=== PATIENT | female | born 1955 | race Caucasian/White ===

== ENCOUNTER 2022-06-28 05:03 | Observation (INO) ==
--- NOTE | 2022-06-13 13:05 | PAT Medication Instructions ---
Medication Instructions Date of Service June 13, 2022 Home Medications alprazolam 0.25 mg tablet (Xanax) 0.25 mg PO HS PRN Anxiety omeprazole 20 mg tablet,delayed release 20 mg PO DAILY PRN REFLUX sertraline 50 mg tablet 50 mg PO QAM Take morning of surgery With a small sip of water, OTHERWISE NOTHING TO EAT OR DRINK AFTER MIDNIGHT: omeprazole 20 mg tablet,delayed release 20 mg PO DAILY PRN REFLUX (if needed) sertraline 50 mg tablet 50 mg PO QAM Take evening before surgery alprazolam 0.25 mg tablet (Xanax) 0.25 mg PO HS PRN Anxiety (if needed) omeprazole 20 mg tablet,delayed release 20 mg PO DAILY PRN REFLUX (if needed) Other Notes If you have any questions please call us at [phone] or [phone] or [phone] or [phone]
--- NOTE | 2022-06-15 12:28 | Anesthesiology Consultation ---
Date of Service June 15, 2022 Assessment & Plan (1) Encounter for pre-operative examination: - anesthesia complication: pt states was advised should not undergo spinal block in future due to "blockage in spine" per anesthesiologist when spinal block was attempted with a . Pt states was told block was unsuccessful and anesthesia was converted to general. She expresses did have unpleasant experience with a previous intubation as woke during extubation. She states plans to discuss with anesthesiologist DOS. - difficult IV stick. Outpatient joint assessment: Patient is currently scheduled for inpatient pathway. Pt states prefers to remain overnight, if pathway is requested by patient and surgeon's office in future this will be further reviewed. Chart Review Chart Review: Acceptable Risk for Surgery and Patient seen in Pre Admission Testing Teaching & Discussion Pre-Anesthesia Teaching/Discussion Notes: Instructed NPO after midnight before surgery, except medications with 15 cc of water. Medication instructions provided according to the PAT guidelines. History Surgery Operation Date: 06/28/22 09:00 Proposed Procedures p Left Total Knee Arthroplasty - Dominick Licea MD Height/Weight Height: 5 ft 10 in Weight: 79.379 kg Allergies Allergy/AdvReac Type Severity Reaction Status Date / Time morphine Allergy Intermediate ARM Verified 06/13/22 09:09 SWELLING codeine AdvReac Mild NAUSEA Verified 06/13/22 09:09 Medications Home Medications Medication Instructions Recorded Confirmed Last Taken alprazolam 0.25 mg tablet (Xanax) 0.25 mg PO HS PRN Anxiety 03/06/19 06/13/22 Unknown omeprazole 20 mg tablet,delayed 20 mg PO DAILY PRN REFLUX 03/06/19 06/13/22 03/10/19 04:45 release sertraline 50 mg tablet 50 mg PO QAM 06/13/22 06/13/22 Unknown Past Medical History Medical History (Updated 06/15/22 @ 12:35 by Chanel Rehman PA-C) Anxiety GERD (gastroesophageal reflux disease) controlled, stable per pt History of kidney stones Irritable bowel syndrome Migraine Poor venous access PER PATIENT DIFFICULT IV STICK Patient denies h/o stroke, seizures, heart attack, heart failure, DM, HTN, blood clots or blood transfusions. Exercise / Class Metabolic Activity II 4-5 Yardwork/Stairs/Walk up hill (denies CP or SOB with 1 FOS) Past Family History Family History Other No family history of adverse response to anesthesia No significant family history Past Surgical History Surgical History (Updated 06/15/22 @ 12:36 by Chanel Rehman PA-C) History of anesthesia reaction WAS TOLD NOT TO HAVE A SPINAL (WAS TOLD BLOCK DID NOT WORK WITH d/t "small blockage in spine") History of arthroscopy LEFT/RT KNEE Right knee arthroscopy 03/11/19= Done under [facility] with LMA #4, atraumatic History of section X 2 History of colonoscopy History of discectomy LUMBAR AREA History of ear surgery LEFT EAR-GRAFT ON EAR DRUM History of esophagogastroduodenoscopy (EGD) History of hysterectomy History of lithotripsy History of tooth extraction Nausea and vomiting after administration of anesthetic agent Past Anesthesia History No Family Hx of Anesthesia Complications and Other (see anesthesia reaction above regarding spinal) History of PONV No Hx of Motion Sickness and History of PONV (denies needing scop patch) Social History Smoking Status: Never smoker Do You Dip or Chew Tobacco: No Hx Alcohol Use: Yes Alcohol type: wine alcohol intake frequency: a few times a week substance use type: does not use Review of Systems Snoring, denies witnessed apneas. Patient denies chest pain, shortness of breath, dyspnea on exertion, fever, chills, cough, wheezing, or palpitations. Physical Exam Vital Signs Vitals BP 136/85 P 64 TEMP 98.2 SP02 97% on RA RESP 18 Physical Full cervical extension range of motion without pain TMD 3.5 finger breadths Mallampati Score 3 Dentition: intact, removable partial lower and full upper implants; denies chipped or loose teeth Lungs: normal respiratory effort. Clear throughout to auscultation, no adventitious breath sounds Cardiac: regular rate and rhythm, no murmurs noted Carotid arteries: negative bruit bilat Lab Results Anesthesia Preop Results Results Anesthesia Widget: WBC 8.24 K/ul (4.8-10.8) 06/15/22 Hgb 11.8 g/dl (12.0-16.0) L 06/15/22 Hct 35.9 % (34.1-44.9) 06/15/22 Plt 236 K/uL (130-400) 06/15/22 Na 140 mmol/L (136-145) 06/15/22 K 4.6 mmol/L (3.5-5.1) 06/15/22 Cl 105 mmol/L (98-107) 06/15/22 CO2 30 mmol/L (21-32) 06/15/22 BUN 17 mg/dl (6-23) 06/15/22 Creat 0.68 mg/dl (0.6-1.2) 06/15/22 Glucose Level 87 mg/dl (70-99(Fasting)) 06/15/22 PT 10.6 Seconds (9.0-12.0) 06/15/22 PTT 24.4 Seconds (21.0-31.0) 06/15/22 INR 1.0 (0.9-1.1) 06/15/22 Urine Color Yellow 06/15/22 Urine Appearance Clear (Clear) 06/15/22 Urine pH 6.0 (4.5-7.5) 06/15/22 Urine Specific [place] 1.007 (1.000-1.030) 06/15/22 Urine Protein Negative (Negative) 06/15/22 Urine Glucose (UA) Negative (Negative) 06/15/22 Urine Ketones Negative (Negative) 06/15/22 Urine Blood 2+ (Negative) H 06/15/22 Urine Nitrite Negative (Negative) 06/15/22 Urine Bilirubin Negative (Negative) 06/15/22 Urine Urobilinogen Negative (Negative) 06/15/22 Urine Leukocyte Esterase Negative (Negative) 06/15/22 Urine WBC (Auto) 1-5 /hpf (0-5) 06/15/22 Urine RBC (Auto) 5-10 /hpf (0-4) H 06/15/22 Urine Hyaline Casts (Auto) 0 /lpf (0-5) 06/15/22 Urine Epithelial Cells (Auto) 10-20 /lpf (0-5) H 06/15/22 Urine Bacteria (Auto) Negative (Negative) 06/15/22 Blood Type B Positive 06/15/22 Antibody Screen NEGATIVE 06/15/22 Testing Electrocardiogram Date: 06/15/22 NSR, rate 65 bpm Chest X-Ray Date: 06/15/22 No lines and tubes are seen. Calcified aortic knob is seen. The lungs are clear. No evidence of pleural effusion or pneumothorax. Degenerative changes are seen in the thoracic spine. IMPRESSION: No acute chest disease. COVID-19 Risk Screen Screening Information COVID-19 Screen Date: 06/15/22 Exposure 21 Days Family/Household +COVID Last 21 Days: No Exposure 10 Days Any COVID Exposure Last 10 Days: No Symptoms Last 10 Days Experienced COVID Sx Last 10 Days: No + COVID 0-90 Days COVID + in Last 0-90 Days: No
--- NOTE | 2022-06-28 05:22 | History & Physical Bridge Note ---
Date of Service June 28, 2022 History & Physical Bridge Note I have examined the patient, reviewed the History & Physical and in the interval since the performance of the History & Physical I have noted the following changes of clinical significance: no changes noted
[2022-06-28] MEDS ORDERED: ceFAZolin 2000MG 2,000 MG/15 ML SYR IV SCH (06:00)
[2022-06-28] MEDS ORDERED: LR 60ML/HR IV SCH (06:00)
[2022-06-28] MEDS ORDERED: LR 15ML/HR IV SCH (06:00)
[2022-06-28] MEDS ORDERED: TRANEXAMIC ACID 1,000 MG **IV Pre-op IV SCH (06:00)
[2022-06-28] MEDS ORDERED: ROPIVACAINE 0.5% HCL/PF 150 MG, BUPIVACAINE 0.75% MPF 20 ML, EPINEPHrine 0.15 MG, Ketor... INFIL SCH (06:00)
[2022-06-28] MEDS ORDERED: LIDOCAINE 2% MPF LOCAL 5 ML VIAL INFIL ONE (06:12)
[2022-06-28] MEDS ORDERED: fentaNYL citrate 100 MCG/2 ML VIAL ONE (06:12)
[2022-06-28] MEDS ORDERED: PROPOFOL IV EMULSION 10 MG/ML 20 ML VIAL IV ONE ×3 (06:12→07:25)
[2022-06-28] MEDS ORDERED: MIDAZOLAM HCL 1 MG/ML 2ML VIAL ONE ×2 (06:13→07:03)
[2022-06-28] MEDS ORDERED: ONDANSETRON INJ 2 MG/ML 2 ML VIAL ONE (06:16)
[2022-06-28] MEDS ORDERED: DEXAMETHASONE SOD INJ 4 MG/ML VIAL ONE (06:16)
[2022-06-28] MEDS ORDERED: METOCLOPRAMIDE HCL INJ 5 MG/ML 2 ML VIAL ONE (06:16)
[2022-06-28] MEDS ORDERED: SCOPOLAMINE 1 MG TDSY TD ONE (06:18)
[2022-06-28] MEDS ORDERED: FAMOTIDINE/PF 20 MG/2 ML VIAL IV ONE (06:19)
[2022-06-28] MEDS ORDERED: BUPIVACAINE 0.25% 30 ML VIAL ONE (06:31)
[2022-06-28] MEDS ORDERED: BUPIVACAINE 0.5 % 5 MG/1 ML PF 10ML VIAL ONE (06:31)
[2022-06-28] MEDS ORDERED: ORTHO JOINT ANESTHETIC ONE (06:37)
[2022-06-28] MEDS ORDERED: ePHEDrine sulfate 50 MG/ML AMP IV PRN (06:55)
[2022-06-28] MEDS ORDERED: ATROPINE SULFATE 0.1 MG/ML 10ML SYR IV PRN (06:55)
[2022-06-28] MEDS ORDERED: ONDANSETRON INJ 2 MG/ML 2 ML VIAL IV PRN ×2 (06:55→09:54)
[2022-06-28] MEDS ORDERED: fentaNYL citrate 100 MCG/2 ML VIAL IV PRN (06:55)
[2022-06-28] MEDS ORDERED: PHENYLEPHRINE HCL 10 MG/ML VIAL ONE (07:44)
--- NOTE | 2022-06-28 08:30 | Post Operative Brief Note ---
Immediate Post Op Note v1 Date of Surgery June 28, 2022 Pre & Post Diagnosis Operation Date: 06/28/22 07:00 Pre-Op Diagnosis: Left Knee Degenerative Joint Disease Post-Op Diagnosis: Left Knee Degenerative Joint Disease I identified the patient and participated in the time-out.: Yes Procedure Operation Date: 06/28/22 07:00 Actual Procedures p Left Total Knee Arthroplasty, Cemented(Left) - Dominick Licea MD Surgeon Dominick Licea MD Dispatcher [facility] Estimated Blood Loss 25 Findings Consistent with Post-Op Diagnosis
--- NOTE | 2022-06-28 08:39 | Operative Report ---
Post Operative Report Pre & Post Diagnosis Operation Date: 06/28/22 07:00 Pre-Op Diagnosis: Left Knee Degenerative Joint Disease Post-Op Diagnosis: Left Knee Degenerative Joint Disease I identified the patient and participated in the time-out.: Yes Procedure Operation Date: 06/28/22 07:00 Actual Procedures p Left Total Knee Arthroplasty, Cemented(Left) - Dominick Licea MD Surgeon CHANDA Licea MD Bulb Packer Susi POLANCO Estimated Blood Loss 25 Findings Consistent with Post-Op Diagnosis see operative report Specimens see operative report Drains none Complications none Disposition Accompanied Patient To Recovery: Yes Indications This 66 year old female presented to the office with complaints of persisting left knee pain. She had tried conservative care measures without improvement. She elected to proceed with surgical intervention after being educated about potential risks and outcomes. Preoperative imaging was obtained. Description of Procedure Patient was administered a spinal anesthetic and then taken to the operating room where she was given sedation. She was prepped and draped in the usual sterile fashion. Please see Dr. Licea's operative report for specifics of the procedure. I was present for the entire case from initial patient positioning through final wound closure. Assistance was provided in tissue retraction, hemostasis, trial implant placement, final implant placement, and final wound closure. Patient was taken to the recovery room in satisfactory condition. I attest to the content of the Intraoperative Record and any orders documented therein. Any exceptions are noted below.
--- NOTE | 2022-06-28 08:48 | Operative Report (OR) ---
DATE OF PROCEDURE: 06/28/2022. SURGEON: Dominick Licea MD. CASING COOKER: Get Goldman PA-C. No resident or fellow available. PREOPERATIVE DIAGNOSIS: Osteoarthritis with varus deformity, left knee. POSTOPERATIVE DIAGNOSIS: Osteoarthritis with varus deformity, left knee. OPERATION PERFORMED: Left cemented total knee replacement. SUMMARY OF IMPLANTS: Sigma femoral implants: Size 3 left femur posterior cruciate substituting, siz e 3 mobile bearing tray, size 3 x 12.5 insert, oval dome 3-peg patella, size 38, two bags of Palacos G cement. ESTIMATED BLOOD LOSS: 25 mL CRYSTALLOID: Per anesthesia. BONE PATHOLOGY: Pending. DVT PROPHYLAXIS: Per protocol. PERIOPERATIVE SITUATION: Medically cleared female with intractable knee pain, wished to proceed with surgical treatment. She has failed conservative management for years. DESCRIPTION OF PROCEDURE: The patient was appropriately identified, site verified, consent verified. Antibiotics were confirmed as being given. The left lower extremity was prepped and draped in the usual routine fashion. Tourniquet was inflated to 275 mmHg for a total of roughly 45 minutes. Midli ne exposure was utilized. Parapatellar arthrotomy performed. Synovectomy completed, osteophytes res ected. Distal femur entered. Cruciates resected. Distal femur resected. Tibia subluxated with men iscal remnants excised. There was grade IV disease of the entire medial compartment. There was sign ificant disease of the patellofemoral compartment. Once the distal femur was cut and the tibia sublu xated, the proximal tibia cut, the extension gap was excellent. The femur was sized between a 4 and a 3, was measured 4, cut 3. There was no notching. The flexion gap was checked, it was excellent. The posterior capsule was then injected with Orthomix. The box cut was then made, the size 3 fit wel l. The tibia was then broached and reamed to a size 3 and a size 12.5 spacer gave a little bit stephen r mid range stability without losing extension, so we kept that. The patella was then resected leavi ng 14 mm and a 38 button fit well. It tracked well. Did require some internal releasing. The Orthomix was then injected all about the knee. The implants were removed. The wound was irrigat ed and soaked in Betadine for 2 minutes, then irrigated again and then the implants cemented in posit ion -- tibia, femur, and patella in that order. At 12 minutes, the tourniquet deflated. At 14 minute s, the knee inspected. There was no cement removal required. There was no major bleeding. Bone wax was used on some raw surfaces of bone to prevent any leakage. The wound was then irrigated one shivam l time with Betadine and Pulsavac, the permanent liner seated. The knee then reduced and closed with #2 Vicryl, 2-0 Vicryl and stainless steel clips. Appropriate dressing applied. The patient was tra nsferred to recovery room in satisfactory condition, having tolerated the procedure well. Job ID: [id number]
--- NOTE | 2022-06-28 08:54 | Progress Notes ---
DATE OF SERVICE: 06/28/2022 SUBJECTIVE: Postop check status post left total knee replacement. The patient is resting comfortably in PACU. She denies any chest pain, shortness of breath, fever, chills, nausea, vomiting or headache. VITAL SIGNS: Stable. She is afebrile. Wound dressing clean, dry and intact. Neurovascular check limited by spinal. X-rays postoperative look good. ASSESSMENT: Doing well. Continue care pathway. Mobilize BEATRIZ when spinal effects worn off. Discharge home tomorrow. Job ID[facility] [id number] [facility]
--- NOTE | 2022-06-28 09:04 | Discharge Summary (DS) ---
DATE OF ADMISSION: 06/28/2022. DATE OF DISCHARGE: 06/29/2022. CHIEF COMPLAINT: Left knee pain. HISTORY OF PRESENT ILLNESS: Admitted for elective left total knee replacement. To date hospital cou rse has been uneventful. She is having a total knee replacement. Postop x-rays look excellent. REVIEW OF SYSTEMS: Reveals no chest pain, shortness of breath, fever, chills, nausea, vomiting or he adache. PAST MEDICAL HISTORY: Remarkable for acid reflux, migraines, rheumatoid arthritis, kidney stones, na usea and vomiting with anesthesia. PAST SURGICAL HISTORY: Include knee surgery, , laser eye surgery. PREADMISSION MEDICATIONS: Include lorazepam, atorvastatin, Celebrex p.r.n., ketorolac for migraines. ALLERGIES: MORPHINE SWELLING UPPER EXTREMITY. CODEINE, NAUSEA, VOMITING. SOCIAL HISTORY: Reveals no tobacco or alcohol use. FAMILY HISTORY: Noncontributory. Postop x-rays look excellent. ASSESSMENT: Doing well status post left total knee replacement. Continue with postoperative care phil pacheco. Job ID: [id number]
[2022-06-28] MEDS ORDERED: HYDROmorphone INJ 0.5 MG/0.5 ML SYR IV PRN (09:54)
[2022-06-28] MEDS ORDERED: NALOXONE HCL 0.4 MG/1 ML VIAL/CARP IV PRN (09:54)
[2022-06-28] MEDS ORDERED: METOCLOPRAMIDE HCL INJ 5 MG/ML 2 ML VIAL IV PRN (09:54)
[2022-06-28] MEDS ORDERED: ALPRAZolam 0.25 MG TABLET PO PRN (09:54)
[2022-06-28] MEDS ORDERED: bisacodyL 10 MG SUPP PR PRN (09:54)
[2022-06-28] MEDS ORDERED: ALUMINUM/MAGNESIUM SUSP 30 ML UDC PO PRN (09:54)
[2022-06-28] MEDS ORDERED: MAGNESIUM HYDROXIDE SUSP 30 ML UDC PO PRN (09:54)
[2022-06-28] MEDS ORDERED: SODIUM CHLORIDE 0.9% 1000ML 1,000 ML IV SCH (09:54)
[2022-06-28] MEDS ORDERED: diphenhydrAMINE 50 MG/ML VIAL IV PRN (09:54)
[2022-06-28] MEDS: DOCUSATE SODIUM 100 MG CAP PO SCH ×2 (11:17→21:49)
[2022-06-28] MEDS: KETOROLAC TROMETHAMINE 15 MG/ML VIAL IV SCH ×3 (11:17→21:49)
[2022-06-28] MEDS: SERTRALINE HCL 50 MG TABLET PO SCH (11:18)
[2022-06-28] MEDS: MULTIVITAMIN TAB PO SCH (11:18)
--- NOTE | 2022-06-28 11:30 | Progress Notes ---
DATE OF SERVICE: 06/28/2022 SUBJECTIVE: Postop check status post left knee replacement. The patient is sitting up in bed, is dr inking water with no issues. Denies chest pain, shortness of breath, fever, chills, nausea, vomiting or headache. OBJECTIVE: Neurovascular check of femoral sciatic nerve is returning from spinal. Wound dressing cl seth, dry and intact. Calf is nontender. ASSESSMENT: Doing well. Continue with postoperative care pathway. Mobilize in a knee immobilizer a nd discontinue IV fluid when she has lunch. Job ID: [id number]
[2022-06-28] MEDS: ORTHO WARFARIN NOMOGRAM SCH (12:59)
--- NOTE | 2022-06-28 13:51 | XRay Report ---
XR knee LT 1 or 2V routine CLINICAL HISTORY: S/P L TKA COMPARISON: Left knee radiographs June 05, 2022. FINDINGS: Alignment of the total left knee arthroplasty is anatomic. There is no periprosthetic frac ture or unexpected radiopaque foreign body. There are skin ramya. IMPRESSION: Expected findings following total left knee arthroplasty. ACT 112: Negative or not required by law. Electronically signed by: Leandro Diaz M.D. 06/28/2022 1:50 PM
[2022-06-28] MEDS: ACETAMINOPHEN 500 MG TAB PO SCH ×2 (14:30→21:48)
[2022-06-28] MEDS: oxyCODONE HCL IR 5 MG TAB (IMMEDIATE RELEASE) PO PRN ×2 (14:36→19:28)
[2022-06-28] MEDS ORDERED: TRANEXAMIC ACID / 0.7% NACL 1,000 MG/100 ML BAG IV SCH (14:45)
--- NOTE | 2022-06-28 14:53 | Anesthesiology Progress Note ---
Date of Service June 28, 2022 Anesthesia Post Procedure Vital Signs Vital Signs: Temp Pulse Pulse Resp BP Pulse Ox O2 Del Method 06/28/22 12:55 36.5 C 81 16 97/61 L 100 Room Air 06/28/22 11:55 36.6 C 77 16 109/68 97 Room Air 06/28/22 10:55 36.5 C 69 16 113/74 96 Room Air 06/28/22 10:34 36.6 C 57 L 16 115/75 99 Room Air 06/28/22 09:56 36.6 C 61 16 120/79 100 Room Air 06/28/22 09:35 36.3 C L 69 16 105/57 L 95 Room Air 06/28/22 09:25 36.3 C L 64 16 110/63 97 Room Air 06/28/22 09:15 69 13 105/61 93 Room Air 06/28/22 09:05 65 17 105/65 95 Room Air 06/28/22 08:55 74 18 110/60 97 Oxymask 06/28/22 08:45 70 18 107/53 L 100 Oxymask 06/28/22 08:37 36.1 C L 73 18 112/64 95 Oxymask 06/28/22 05:28 36.6 C 62 20 100 Room Air O2 Flow Rate 06/28/22 12:55 06/28/22 11:55 06/28/22 10:55 06/28/22 10:34 06/28/22 09:56 06/28/22 09:35 06/28/22 09:25 06/28/22 09:15 06/28/22 09:05 06/28/22 08:55 5 06/28/22 08:45 5 06/28/22 08:37 5 06/28/22 05:28 Transfer of Care Handoff Completed per policy Notes Mental Status: alert / awake / arousable and participated in evaluation Patient Amnestic to Procedure: Yes Nausea / Vomiting: adequately controlled Pain: adequately controlled Airway Patency, RR, SpO2: stable & adequate BP & HR: stable & adequate Hydration State: stable & adequate Neuraxial Anesthesia: was administered and sensory block is resolving Anesthetic Complications: no major complications apparent and Pt Satisfied with anesthetic care
[2022-06-28] MEDS: ceFAZolin 2000MG 2,000 MG/15 ML SYR IV SCH ×2 (15:16→21:49)
[2022-06-28] MEDS ORDERED: WARFARIN SOD 5 MG TAB PO SCH (16:00)
[2022-06-28] MEDS: FERROUS GLUCONATE 324 MG TAB PO SCH (17:34)
[2022-06-28] MEDS: ASCORBIC ACID 500 MG TAB PO SCH (17:34)
[2022-06-28] MEDS ORDERED: SENNA 8.6 MG TAB PO SCH (21:00)
[2022-06-29] MEDS: ceFAZolin 2000MG 2,000 MG/15 ML SYR IV SCH (00:11)
[2022-06-29] MEDS: oxyCODONE HCL IR 5 MG TAB (IMMEDIATE RELEASE) PO PRN ×4 (00:11→13:02)
[2022-06-29] MEDS: KETOROLAC TROMETHAMINE 15 MG/ML VIAL IV SCH ×2 (00:11→04:29)
[2022-06-29] MEDS: ACETAMINOPHEN 500 MG TAB PO SCH ×2 (05:28→13:04)
[2022-06-29 06:35] LABS: Hematocrit (blood only) 28.8 % (34.1-44.9); Hemoglobin 9.5 g/dl (12.0-16.0); Mean Corpuscular Hemoglobin 29.5 pg (25.0-34.0); Mean Corpuscular Volume 89.4 fL (80.0-100.0); Mean Platelet Volume 10.6 fL (9.4-12.3); Platelet Count 189 K/uL (130-400); RDW Coefficient of Variation 13.9 % (11.5-14.5); RDW Standard Deviation 45.3 fL (36.4-46.3); Red Blood Count 3.22 M/uL (3.93-5.22)
--- NOTE | 2022-06-29 06:37 | Progress Notes ---
DATE OF SERVICE: 06/28/2022 SUBJECTIVE: Postop check, status post left total knee replacement. The patient is sitting up in bed. She has no issues. She denies any real pain. She denies chest pa in, shortness of breath, fever, chills, nausea, vomiting or headache. OBJECTIVE: VITAL SIGNS: Stable. She is afebrile. NEUROVASCULAR: Neurovascular check, femoral sciatic nerve is normal. She can do a straight leg rueda se. She is ambulating. EXTREMITIES: Calves nontender. SKIN: Wound dressing clean, dry and intact. She is eating, drinking, voiding. LABORATORY DATA: A.m. laboratory work pending. ASSESSMENT: Doing well. Discharged home today after a.m. PT. Coumadin dose per nomogram today. Tere davila pending. Job ID: [id number]
[2022-06-29 06:57] LABS: BUN Creatinine Ratio 21.3 (10-20); Calcium 8.3 mg/dl (8.5-10.1); Creatinine Clr Calc Pharmacy 86.7 ml/min; Est GFR (African American) 96.3 ml/min; Est GFR (Non-African American) 83.1 ml/min; Potassium 3.8 mmol/L (3.5-5.1)
[2022-06-29 07:17] LABS: INR 1.1 (0.9-1.1); Prothrombin Time 11.2 Seconds (9.0-12.0)
[2022-06-29] MEDS: SERTRALINE HCL 50 MG TABLET PO SCH (07:26)
[2022-06-29] MEDS: MULTIVITAMIN TAB PO SCH (07:26)
[2022-06-29] MEDS: ASCORBIC ACID 500 MG TAB PO SCH (07:26)
[2022-06-29] MEDS: FERROUS GLUCONATE 324 MG TAB PO SCH (07:26)
[2022-06-29] MEDS: DOCUSATE SODIUM 100 MG CAP PO SCH (07:27)
[2022-06-29] MEDS ORDERED: dexAMETHasone 10 MG in SYRINGE 0 ML IV SCH (08:00)
--- NOTE | 2022-06-29 09:04 | Orthopedic Progress Note ---
Date of Service June 29, 2022 Assessment & Plan (1) S/P total knee replacement using cement: Plan: Patient's dressings were changed. THOMAS hose were applied. She may be discharged today to home with home health services. Knee immobilizer should be used today and tomorrow and may be discontinued on Sunday morning. Weight-bear as tolerated using her walker. Prescriptions for Percocet and Coumadin were sent to her pharmacy. Follow-up in the office in 2 weeks as scheduled for staple removal. Call with any other concerns. Admission and Anticipated Discharge Date Admission Date: June 28, 2022 Subjective Patient is seen in her room this morning. She states she is doing well. She has minimal pain. She is pleased with her outcome thus far. She has been out of bed. She has finished her breakfast. No other complaints. She denies any chest pain, shortness of breath, nausea, vomiting, abdominal pain, or significant leg pain. Review of Systems Review of Systems: Unchanged from yesterday. Physical Exam Physical Exam: General: Well-developed, well-nourished, elderly white female, in no acute distress. Sitting in bed. Alert and oriented. Skin: Warm and dry with good turgor. No rashes or lesions. Postsurgical dressings are in place on the left leg. Upon removal, ramya are intact. Wound edges are well approximated. Expected ecchymosis. Expected edema. No erythema. No active drainage. There is scant dried blood on her inner dressings. Musculoskeletal: Patient has intact motor function to the knee, ankle, and toes. She is able to set her quad and perform a straight leg raise. She has full terminal extension. Flexion to 45 degrees easily. Neurologic: Gross sensation is intact across the left leg by soft touch. Peripheral pulses are 2+. Results & Data ([facility]) Vital Signs (Past 12 Hours) Vital Signs Temp Pulse Resp BP Pulse Ox O2 Del Method 06/29/22 06:14 36.8 C 64 14 94/61 L 96 Room Air 06/29/22 02:20 37 C 68 14 108/69 96 Room Air 06/29/22 02:19 37 C 64 14 108/69 93 Room Air Laboratory Results CBC obtained this morning shows a white count of 8.2. Hemoglobin 9.5 and hematocrit 28.8. INR is 1.1. PRP is unremarkable. Glucose is 129 today.
[2022-06-29] MEDS: ORTHO WARFARIN NOMOGRAM SCH (09:49)
[2022-06-29] MEDS ORDERED: WARFARIN SOD 5 MG TAB PO ONE (16:00)
== END 2022-06-29 14:23 | disposition home health service (06) ==
LOC: ASU 05:03 → 3E 05:03

== ENCOUNTER 2023-06-20 05:44 | Observation (INO) ==
--- NOTE | 2023-06-13 14:38 | Anesthesiology Consultation ---
Date of Service June 13, 2023 Assessment & Plan (1) Encounter for pre-operative examination: Chart Review Chart Review: Acceptable Risk for Surgery (pending DOS PTT ) and Patient NOT seen in Pre Admission Testing - Check PTT DOS (not done preoperatively) Difficult IV stick Upon review of chart- patient is an acceptable candidate for [facility] from anesthesia perspective. Patient is motivated, has good support; pending surgeon's office completes [facility] preop requirements- patient may proceed with outpatient TKA. (Spoke with patient via phone 06/13/23 to confirm she was motivated, had home support and good functional status) -Infectious Disease screening: Per PAT nursing assessment on 06/13/23. No known infectious disease contacts in past 10 days or current infectious disease symptoms. No recent travel outside the country. Left TKA 06/28/22= Done under SAB at L4-5 with 1 attempt History Surgery Operation Date: 06/20/23 08:50 Proposed Procedures p Right Total Knee Arthroplasty - Dominick Licea MD Height/Weight Height: 5 ft 10 in Weight: 77.111 kg Allergies Allergy/AdvReac Type Severity Reaction Status Date / Time morphine Allergy Intermediate ARM Verified 06/13/23 13:28 SWELLING codeine AdvReac Mild NAUSEA Verified 06/13/23 13:28 Medications Home Medications Medication Instructions Recorded Confirmed Last Taken alprazolam 0.25 mg tablet (Xanax) 0.25 mg PO HS PRN Anxiety 03/06/19 06/13/23 06/26/22 omeprazole 20 mg tablet,delayed 20 mg PO DAILY PRN REFLUX 03/06/19 06/13/23 06/27/22 08:30 release sertraline 50 mg tablet 50 mg PO QAM 06/13/22 06/13/23 06/27/22 08:30 fkowqza-abwfcjptlbzun-gvzxtjrt 250 1 tab PO Q6H PRN Migraine Headache 06/13/23 06/13/23 Unknown mg-250 mg-65 mg tablet (Excedrin Migraine) atorvastatin 20 mg tablet (Lipitor) 20 mg PO HS 06/13/23 06/13/23 Unknown Past Medical History Medical History Dyslipidemia History of kidney stones Poor venous access PER PATIENT DIFFICULT IV STICK GERD (gastroesophageal reflux disease) controlled, stable per pt Irritable bowel syndrome Anxiety Migraine Exercise / Class Metabolic Activity II 4-5 Yardwork/Stairs/Walk up hill (one flight of stairs- no chest pain or SOB ) Past Family History Family History Other No family history of adverse response to anesthesia No significant family history Past Surgical History Surgical History (Updated 06/13/23 @ 14:36 by Gissel Rm PA-C) S/P total knee replacement using cement History of anesthesia reaction - History of issue with spinal anesthesia in the past (WAS TOLD BLOCK DID NOT WORK WITH d/t "small blockage in spine") - Patient had no issues with SAB 06/28/22 (satisfied with SAB per patient) Nausea and vomiting after administration of anesthetic agent History of section X 2 History of hysterectomy History of arthroscopy LEFT/RT KNEE Right knee arthroscopy 03/11/19= Done under [facility] with LMA #4, atraumatic History of discectomy LUMBAR AREA History of lithotripsy History of esophagogastroduodenoscopy (EGD) History of colonoscopy History of tooth extraction History of ear surgery LEFT EAR-GRAFT ON EAR DRUM Social History Smoking Status: Never smoker Do You Dip or Chew Tobacco: No Hx Alcohol Use: Yes Alcohol type: wine alcohol intake frequency: a few times a month Hx Substance Use: No substance use type: does not use Lab Results Anesthesia Preop Results Results Anesthesia Widget: PT 10.9 Seconds (9.0-12.0) 06/11/23 INR 1.0 (0.9-1.1) 06/11/23 Urine Color Yellow 06/11/23 Urine Appearance Clear (Clear) 06/11/23 Urine pH 6.0 (4.5-7.5) 06/11/23 Urine Specific [place] 1.016 (1.000-1.030) 06/11/23 Urine Protein Negative (Negative) 06/11/23 Urine Glucose (UA) Negative (Negative) 06/11/23 Urine Ketones Negative (Negative) 06/11/23 Urine Blood Negative (Negative) 06/11/23 Urine Nitrite Negative (Negative) 06/11/23 Urine Bilirubin Negative (Negative) 06/11/23 Urine Urobilinogen Negative (Negative) 06/11/23 Urine Leukocyte Esterase Trace (Negative) H 06/11/23 Urine WBC (Auto) 1-5 /hpf (0-5) 06/11/23 Urine RBC (Auto) 0-4 /hpf (0-4) 06/11/23 Urine Hyaline Casts (Auto) 0 /lpf (0-5) 06/11/23 Urine Epithelial Cells (Auto) 5-10 /lpf (0-5) H 06/11/23 Urine Bacteria (Auto) Negative (Negative) 06/11/23 Blood Type B Positive 06/11/23 Antibody Screen NEGATIVE 06/11/23 Testing Laboratory Results 06/11/23= URINE CULTURE: 3 types of organisms present, all low counts probable skin larisa 04/26/23= WBC: 4.4 H/H: 11.5/35.8 PLATELETS: 261 SODIUM: 143 POTASSIUM: 4.1 CHLORIDE: 105 CO2: 28 BUN: 18 CREATININE: 0.7 GLUCOSE: 91 Electrocardiogram Date: 06/11/23 NSR at 62bpm Chest X-Ray Date: 06/11/23 Findings: + NAD FINDINGS: PA and lateral chest radiographs are compared to study dated 06/15/2022. The cardiomediastinal silhouette is unremarkable. There are punctate calcified granulomas. The lungs and pleural spaces are otherwise clear. There is no pneumothorax. The skeletal structures are osteopenic. The bony thorax appears intact.
[2023-06-20] MEDS ORDERED: ROPIVACAINE 0.5% HCL/PF 150 MG, BUPIVACAINE 0.75% MPF 20 ML, EPINEPHrine 0.15 MG, Ketor... INFIL SCH (06:00)
[2023-06-20] MEDS ORDERED: TRANEXAMIC ACID 1,000 MG **IV Pre-op IV SCH (06:00)
[2023-06-20] MEDS ORDERED: LR 500ML BOLUS, THEN 15ML/HR IV SCH (06:00)
[2023-06-20] MEDS ORDERED: LR 60ML/HR IV SCH (06:00)
[2023-06-20] MEDS ORDERED: ceFAZolin 2000MG 2,000 MG/15 ML SYR IV SCH (06:00)
[2023-06-20] MEDS ORDERED: EPINEPHrine INJ 1 MG/ML AMP ONE (06:22)
[2023-06-20] MEDS ORDERED: BUPIVACAINE 0.5 % 5 MG/1 ML PF 10ML VIAL ONE (06:22)
[2023-06-20] MEDS ORDERED: ROPIVACAINE 0.5% 5 MG/ML 30 ML VIAL ONE (06:22)
--- NOTE | 2023-06-20 06:26 | History & Physical Bridge Note ---
Date of Service June 20, 2023 History & Physical Bridge Note I have examined the patient, reviewed the History & Physical and in the interval since the performance of the History & Physical I have noted the following changes of clinical significance: no changes noted
[2023-06-20 06:54] LABS: Partial Thromboplastin Ratio 0.8; Partial Thromboplastin Time 23 Seconds (21-31)
[2023-06-20] MEDS ORDERED: MIDAZOLAM HCL 1 MG/ML 2ML VIAL ONE ×2 (07:41→07:42)
[2023-06-20] MEDS ORDERED: fentaNYL citrate PF 100 MCG/2 ML VIAL ONE (07:42)
[2023-06-20] MEDS ORDERED: LIDOCAINE 2% 2 ML VIAL/AMP(20MG/ML) INFIL ONE (07:48)
[2023-06-20] MEDS ORDERED: PROPOFOL IV EMULSION 10 MG/ML 20 ML VIAL IV ONE (07:48)
[2023-06-20] MEDS ORDERED: DEXAMETHASONE SOD INJ 4 MG/ML VIAL ONE (08:53)
[2023-06-20] MEDS ORDERED: ONDANSETRON INJ 2 MG/ML 2 ML VIAL ONE (08:53)
[2023-06-20] MEDS ORDERED: ORTHO JOINT ANESTHETIC ONE (09:12)
[2023-06-20] MEDS ORDERED: ePHEDrine sulfate 50 MG/5 ML SYR ONE (10:05)
[2023-06-20] MEDS ORDERED: TRANEXAMIC ACID / 0.7% NACL 1000MG/100ML BAG IV ONE (10:10)
[2023-06-20] MEDS ORDERED: TRANEXAMIC ACID 100 MG/ML 10 ML VIAL IV ONE ×2 (10:32→10:38)
[2023-06-20] MEDS ORDERED: ATROPINE SULFATE 0.1 MG/ML 10ML SYR IV PRN (10:41)
[2023-06-20] MEDS ORDERED: ePHEDrine sulfate 50 MG/ML AMP IV PRN (10:41)
--- NOTE | 2023-06-20 10:45 | Post Operative Brief Note ---
Immediate Post Op Note v1 Date of Surgery June 20, 2023 Pre & Post Diagnosis Operation Date: 06/20/23 08:50 <No data on this case meets the specified criteria> Osteoarthritis with varus deformity right knee preop diagnosis postop diagnosis same I identified the patient and participated in the time-out.: Yes Procedure Operation Date: 06/20/23 08:50 <No data on this case meets the specified criteria> Cemented right total knee replacement DePuy J&J rotating platform system Surgeon Dominick Licea MD Lead Pony Rider BILL/Susi Estimated Blood Loss 25 Findings Consistent with Post-Op Diagnosis Severe medial compartment disease grade 4 tibia and femur over 50 to 75% of the surface on the femur roughly 40% on the tibia patella completely denuded of cartilage in the 50% central area grade 2-3 changes smaller grade 4 change in the trochlea Fluids See anesthesia report Complications None
[2023-06-20] MEDS ORDERED: TRANEXAMIC ACID / 0.7% NACL 1,000 MG/100 ML BAG IV ONE (10:49)
--- NOTE | 2023-06-20 10:49 | Operative Report ---
Post Operative Report Procedure Date: June 20, 2023 Pre & Post Diagnosis: [Osteoarthritis right knee varus deformity preop diagnosis Postop diagnosis same Time Out: I identified the patient and participated in the time-out. Procedure: [Cemented right total knee replacement] Surgeon: Conchita] Feller Buncher Operator: [BILL/Susi] Estimated Blood Loss: [] 25 cc Findings: [Severe disease medial compartment especially femur and tibia grade 4 50% surface area grade 4 75% patella surface Specimens: Bone pathology [] Description of Procedure: [] After the patient was appropriate notified site verified consent verified antibiotics confirmed to be given the right lower extremity was prepped and draped in routine fashion. Tourniquet was inflated to 275 mmHg for exsanguination limb with a rubber surprise for total of 49 minutes. Midline exposure was utilized. Arthrotomy performed. Synovectomy completed. Osteophytes resected. Distal femur entered. Cruciates resected. Tibia subluxated menisci resected. Care taken to coagulate all vessels around the knee and the geniculate system. Distal femur was then resected 12 mm proximal tibia 4 mm the extension gap was excellent. This femur was sized between a 4 and a 3 was measured for cut 3 there was no notching the flexion gap was excellent. The box cut was then made. A size 3 fit well. The tibia was then subluxated broached and reamed to a size 3 and a 12-1/2 mm spacer gave excellent extension full flexion stability and good midrange flexion stability. The patella tracked well. The patella was resected leaving 14 mm and was only roughly 24 mm wide. The 38 button seating holes were made and tracked well. Ortho mix was then injected all about the knee the wound was then irrigated with Pulsavac Betadine soaked for 2 minutes and then the permanent cemented into position. Tibia femur and patella in that order a 12 minutes the tourniquet was deflated at 14 minutes the knee was exposed spacer removed no cement removal required the knee was irrigated with Pulsavac Betadine the permanent liner seated the knee reduced and then closed at 40 degrees of flexion with #2 Vicryl 2-0 Vicryl and standstill clips appropriate dressing applied the patient recovery in satisfactory addition having tolerated procedure well. Summary of implants size 3 rotating platform femur posterior cruciate substituting size 3 mobile-bearing tray size 3 x 12.5 insert posterior cruciate stabilized in the 38 patella 2 bags of [place] G cement J&J rotating platform system. DVT prophylaxis will be with Eliquis for 4 weeks. EBL was 25 cc or less bone pathology pending crystalloid per anesthesia. Full weightbearing. Attestation: I attest to the content of the Intraoperative Record and any orders documented therein. Any exceptions are noted below.
--- NOTE | 2023-06-20 10:50 | Orthopedic Progress Note ---
Date of Service June 20, 2023 Assessment & Plan (1) S/P total knee replacement using cement: Plan Care management plan; discharge plan tomorrow. Start DVT PE. Prophylaxis tomorrow. Admission and Anticipated Discharge Date Admission Date: Dissipated date of discharge 06/21/2023. Orthopedic Progress Note Tolerated right total knee replacement well denies chest pain shortness of breath fever chills nausea vomiting or headache. Vital signs are stable she is afebrile. Postop x-rays pending. Family contacted. Continue with care pathway. Discharge tomorrow. Pain medication issues have been discussed with her. These include nausea. Will adjust accordingly to [place]. Eliquis for DVT PE prophylaxis for 4 weeks.
--- NOTE | 2023-06-20 10:53 | Discharge Summary ---
Date of Service June 21, 2023 Admission HPI Per Admitting Provider Pain right knee failed conservative management for years. Wishing total knee replacement had it done on the opposite side did well this for the right side. Principal Diagnosis Severe osteoarthritis right knee Discharge Data Allergies Allergy/AdvReac Type Severity Reaction Status Date / Time morphine Allergy Intermediate ARM Verified 06/20/23 06:06 SWELLING oxycodone AdvReac Intermediate Hallucinati Verified 06/20/23 06:19 ng codeine AdvReac Mild NAUSEA Verified 06/20/23 06:06 Vaccinations None Consultations None Procedures Performed Operation Date: 06/20/23 08:50 Actual Procedures p Right Total Knee Arthroplasty(Right) - Dominick Licea MD Ordered Studies 06/20/23 05:00 US - OR guided needle placemen Routine Hospital Course (1) Status post right knee replacement: Home self-care with home services. Case management to see today. Plan Discharge to home tomorrow after PT OT services. Total Time Total Time Spent Total Time Spent (In Minutes): 5 minutes Discharge Plan Discharge Items Patient Disposition: Home - Home Health Services Reason For Visit: Right Knee Degenerative Joint Disease Discharge Diagnosis: Right knee s/p total knee replacement Condition on Discharge: Good Activity: Per Instructions section Lifting: Wait until after follow-up appointment Bathing: Keep incision dry Sexual Activity: Wait until after follow-up appointment Exercise/Sports: Wait until after follow-up appointment Driving/Machine Use: No driving until cleared by Dr. Licea Weightbearing: Full weightbearing Non-emergency contact: Surgeon Call non-emergency contact if: you have any medication questions, your pain is not controlled, your temperature is above 101.5, your wound has increased redness, your wound has increased drainage and your wound pain has increased Follow-up/Referrals: Tevin Schmidt MD [Primary Care Provider] - Diet: Regular Addtl Attending Provider Instructions: New Medicine: * You will likely be taking one or more of these medications: 1. Percocet - Take, as directed, when you need it, every four to six hours to control your pain. 2. Iron Sulfate - Take three times each day for the month after surgery to help you replace the blood lost during surgery. 3. Coumadin - Thins your blood to lessen the chance of forming a blood clot. The dose of this is different for each person and is based on your blood tests that are done twice a week. * The most common side effects of pain medicine and iron are nausea and constipation. If nausea or constipation is too much of a problem or if you have any questions about your new medicines or doses, call [facility] at . We will try to help you manage these issues. "VERY IMPORTANT TO READ AND REVIEW" Blood Clots and Blood Thinning Medicine: * You are given Coumadin during the immediate post-operative period to lessen the risk of blood clots forming in your legs and/or lungs. Coumadin is usually given for six weeks after surgery. * The prescription is for 2 mg tablets. At discharge, you should understand your dose and take it all at the same time every day, preferably after dinner. * You need to get your blood checked 1 - 2 times per week for six weeks or as directed. * If your dose needs to change, we will call you. Do not take your medication on the day of the blood test until we call you. Pain: * The immediate post-operative period after knee replacement surgery is often quite painful. * You are given a prescription for pain medicine. You should take it, as directed, when you need it, especially before physical therapy and before going to bed. Pain that interferes with sleep is very common and can last several months. * You will likely need pain medicine for the first four to six weeks. It will not stop all of the pain. The pain will lessen and as you feel better, you may change to milder pain medicine such as Tylenol. * The most common side effects of pain medicine are nausea and constipation, so don't take more than you need. Physical Therapy: * You will have physical therapy two or three times each week for four to six weeks after your surgery in order to regain your knee range of motion and to retrain your knee to work properly. * It is just as important to make sure you are getting your knee perfectly straight as it is to regain your knee bend. * Taking a pain pill an hour before therapy can help you have a more productive and comfortable therapy session if needed. Home Exercise: * You were shown a series of exercises (heel props, heel slides, etc.) in the hospital. Do these exercises three to four times each day including the exercises you were shown in physical therapy. Walking: * Get up and walk several times each day. For the first four weeks, try not to stand or walk for more than one hour at a time. If you do stand or walk for more than one hour, you will not hurt anything, but your knee and leg will likely swell. * As you feel comfortable, you may change from the walker or crutches to a cane and then to independent walking. SELF CARE INSTRUCTIONS AFTER TOTAL KNEE REPLACEMENT A. You may need to continue a physical therapy program after discharge from the hospital. There are several options available to you. Your doctor will assist you in selecting the best one for you. 1. An out-patient facility 2 to 3 times a week for therapy or home therapy. 2. Continue working on all exercises taught to you in the hospital. Your goals should be to increase bending of your knee to 90 degrees and beyond and to fully straighten your knee. B. You may progress at your own pace from walking with a walker or crutches to a cane; then to no assistive devices. C. Make walking a part of your daily routine. Be up as much as comfortable with rest periods throughout the day. Rest with leg elevation is very important. Use the ice wrap frequently for the first 3-4 weeks. D. There are no restrictions on activities. You may ride in a car, shop, participate in medical affairs specialist and all social activities. E. Wear the long elastic stockings (THOMAS hose) 20 hours a day for six weeks after surgery. They can be removed several times a day for laundering and for a shower. F. Do not place a pillow behind your knee when resting. A pillow at your ankle is okay. VERY IMPORTANT TO READ AND REVIEW A. Take Coumadin, Aspirin or Lovenox (blood thinning medications) as directed by your doctor. If on Coumadin, have a pro-time (blood test) drawn according to your doctor's instructions. This will tell the doctor how well the Coumadin is thinning your blood. 1. YOU WILL BE GIVEN AN ORDER AT DISCHARGE FOR PT/INR (BLOOD WORK). PLEASE HAVE THIS DONE INSTRUCTED. PLEASE CALL OUR OFFICE AFTER YOUR BLOODWORK IS COMPLETE SO WE CAN TRACK YOUR RESULTS. IF YOU ARE GOING TO OUTPATIENT PHYSICAL THERAPY, YOU WILL NEED TO GO TO OUTPATIENT TESTING TO HAVE IT DRAWN. B. There are a few signs you need to watch for after you are home. Call [facility] if you notice any of the followin. Increased severe knee pain. Some pain is expected especially when you exercise. 2. Increased swelling in your leg or knee; pain or swelling of the calf muscle in either lower leg. 3. Any fluid drainage from the incision. 4. Shortness of breath or chest pain. C. Please call [facility] at if you have any concerns or questions about your operation or recovery. The doctor or his nurse will return your call promptly. D. You must take antibiotics before dental work, bladder, bowel or other surgery. Call the office to obtain a prescription at least 2 days prior to your appointment. * CALL IF INCREASED PAIN, REDNESS, DRAINAGE OR FEVER GREATER THAT 101. * Sutures should be removed 12-14 days after surgery unless you are on chronic steriods, then it will be 14-18 days after surgery. Call your doctor if: * Temperature above 101 degrees F. * Pain not relieved by pain medicine ordered. * Increased drainage or redness from incision. * Notify your doctor with any questions or concerns. Follow up with Get in the office on 07/05 for staple removal use your walker for ambulation start your Eliquis evening. Take it 2x per day x 4 weeks use your knee immobilizer when out of bed on and Sunday. It can be discontinued entirely on Sunday morning. Do not sleep in it. Pending Studies at Discharge: Yes (Bone pathology) Studies:: bone pathology Stand-Alone Forms: [facility], Smoking Cessation Medications and DC Order Prescriptions: No Action alprazolam [Xanax] 0.25 mg Tablet 0.25 mg PO HS PRN (Reason: Anxiety) omeprazole 20 mg Tablet,Delayed Release (Dr/Ec) 20 mg PO DAILY PRN (Reason: REFLUX) atorvastatin [Lipitor] 20 mg Tablet 20 mg PO HS Excedrin Migraine 250-250-65 mg Tablet 1 tab PO Q6H PRN (Reason: Migraine Headache) sertraline 50 mg Tablet 50 mg PO QAM Admission Data Admit Date/Time: 06/20/23 11:04 Attending Provider: Dominick Licea Admit Provider: Dominick Licea Primary Care Provider: Tevin Schmidt
--- NOTE | 2023-06-20 10:58 | Operative Report ---
Post Operative Report Pre & Post Diagnosis Operation Date: 06/20/23 08:50 Pre-Op Diagnosis: Right Knee Degenerative Joint Disease Post-Op Diagnosis: Right Knee Degenerative Joint Disease I identified the patient and participated in the time-out.: Yes Procedure Operation Date: 06/20/23 08:50 Actual Procedures p Right Total Knee Arthroplasty(Right) - Dominick Licea MD Surgeon Dominick Licea MD Graduate Student Instructor BILL/Susi Estimated Blood Loss 25 Findings Consistent with Post-Op Diagnosis Same as postoperative diagnosis. Specimens The resected portions of the femur and tibia. Description of Procedure Please see detailed operative note. I attest to the content of the Intraoperative Record and any orders documented therein. Any exceptions are noted below.
--- NOTE | 2023-06-20 10:58 | Operative Report ---
Post Operative Report Pre & Post Diagnosis Operation Date: 06/20/23 08:50 Pre-Op Diagnosis: Right Knee Degenerative Joint Disease Post-Op Diagnosis: Right Knee Degenerative Joint Disease I identified the patient and participated in the time-out.: Yes Procedure Operation Date: 06/20/23 08:50 Actual Procedures p Right Total Knee Arthroplasty(Right) - Dominick Licea MD Surgeon CHANDA Licea MD Mechanical Integrity Engineer BILL/Susi [place] Estimated Blood Loss 25 Findings Consistent with Post-Op Diagnosis see operative report Specimens see operative report Drains none Complications none Disposition Accompanied Patient To Recovery: Yes Indications This 67 year old female presented to the office with complaints of persisting right knee pain. She had tried conservative care measures without improvement. She elected to proceed with surgical intervention after being educated about potential risks and outcomes. Preoperative imaging was obtained. She previously had a left total knee arthroplasty done in July and elected to proceed with the same on the right. Description of Procedure The patient was administered a spinal anesthetic and then taken to the operating room where she was given sedation. She was prepped and draped in the usual sterile fashion. Please see Dr. Licea's operative report for specifics of the procedure. I was present for the entire case from initial patient positioning through final wound closure. Assistance was provided in tissue retraction, hemostasis, trial implant placement, final implant placement, and final wound closure. The patient was taken to the recovery room in satisfactory condition. I attest to the content of the Intraoperative Record and any orders documented therein. Any exceptions are noted below.
[2023-06-20] MEDS ORDERED: MEPERIDINE HCL 25 MG/ML CARP/VIAL IV ONE (11:35)
[2023-06-20] MEDS ORDERED: MEPERIDINE HCL 25 MG/ML CARP/VIAL IV STA (12:06)
--- NOTE | 2023-06-20 12:26 | Anesthesiology Progress Note ---
Date of Service June 20, 2023 Anesthesia Post Procedure Vital Signs Vital Signs: Temp Pulse Resp BP Pulse Ox O2 Del Method O2 Flow Rate 06/20/23 12:15 71 15 117/68 96 Room Air 06/20/23 12:05 68 18 113/67 97 Room Air 06/20/23 11:55 36.4 C L 70 16 105/70 99 Room Air 06/20/23 11:45 69 16 103/65 98 Room Air 06/20/23 11:35 73 20 102/67 96 Room Air 06/20/23 11:25 72 12 102/61 95 Room Air 06/20/23 11:15 74 12 107/61 98 Oxymask 4 06/20/23 11:05 77 12 106/64 100 Oxymask 4 06/20/23 10:55 36.1 C L 82 14 103/57 L 96 Oxymask 6 06/20/23 06:04 36.5 C 76 20 128/73 98 Room Air Pain Intensity Right Knee: Pain Intensity: 5 Right Head: Pain Intensity: 6 Transfer of Care Handoff Completed per policy Notes Mental Status: alert / awake / arousable Patient Amnestic to Procedure: Yes Nausea / Vomiting: adequately controlled Pain: adequately controlled Airway Patency, RR, SpO2: stable & adequate BP & HR: stable & adequate Hydration State: stable & adequate Neuraxial Anesthesia: was administered and sensory block is resolving Anesthetic Complications: no major complications apparent
--- NOTE | 2023-06-20 12:31 | XRay Report ---
XR knee RT 1 or 2V routine CLINICAL HISTORY: S/P R TKA COMPARISON: Right knee radiograph May 30, 2023. FINDINGS: Alignment of the total right knee arthroplasty is anatomic. There is no periprosthetic fra cture or unexpected radiopaque foreign body. There are skin ramya. IMPRESSION: Expected findings following total right knee arthroplasty. ACT 112: Negative or not required by law. Electronically signed by: Leandro Diaz M.D. 06/20/2023 12:30 PM
[2023-06-20] MEDS ORDERED: ALUMINUM/MAGNESIUM SUSP 30 ML UDC PO PRN (12:55)
[2023-06-20] MEDS ORDERED: bisacodyL 10 MG SUPP PR PRN (12:55)
[2023-06-20] MEDS ORDERED: diphenhydrAMINE 50 MG/ML VIAL IV PRN (12:55)
[2023-06-20] MEDS ORDERED: METOCLOPRAMIDE HCL INJ 5 MG/ML 2 ML VIAL IV PRN (12:55)
[2023-06-20] MEDS ORDERED: ALPRAZolam 0.25 MG TABLET PO PRN (12:55)
[2023-06-20] MEDS ORDERED: ONDANSETRON INJ 2 MG/ML 2 ML VIAL IV PRN (12:55)
[2023-06-20] MEDS ORDERED: VANCOMYCIN CONSULT ACTIVE PRN (12:55)
[2023-06-20] MEDS ORDERED: NON-FORMULARY MEDICATION (Aspirin-Acetaminophen-Caffeine [Excedrin Migraine] 250-250-65 mg PO PRN (12:55)
[2023-06-20] MEDS ORDERED: NALOXONE HCL 0.4 MG/1 ML VIAL/CARP IV PRN (12:55)
[2023-06-20] MEDS ORDERED: MAGNESIUM HYDROXIDE SUSP 30 ML UDC PO PRN (12:55)
[2023-06-20] MEDS ORDERED: SODIUM CHLORIDE 0.9% 1,000 ML IV SCH (12:55)
[2023-06-20] MEDS ORDERED: HYDROmorphone INJ 0.5 MG/0.5 ML SYR IV PRN (12:55)
[2023-06-20] MEDS ORDERED: PANTOprazole 40 MG TAB PO PRN (13:01)
[2023-06-20] MEDS ORDERED: VANCOMYCIN HCL 1,250 MG in SODIUM CHLORIDE 0.9% 500 ML IV ONE (13:15)
[2023-06-20] MEDS: KETOROLAC TROMETHAMINE 15 MG/ML VIAL IV SCH ×2 (13:55→17:46)
[2023-06-20] MEDS ORDERED: ACETAMINOPHEN 500 MG TAB PO SCH (14:00)
[2023-06-20] MEDS: ASCORBIC ACID 500 MG TAB PO SCH (17:07)
[2023-06-20] MEDS: oxyCODONE HCL IR 5 MG TAB (IMMEDIATE RELEASE) PO PRN ×2 (17:07→20:44)
[2023-06-20] MEDS: FERROUS GLUCONATE 324 MG TAB PO SCH (17:08)
[2023-06-20] MEDS: ceFAZolin 2000MG 2,000 MG/15 ML SYR IV SCH (17:46)
[2023-06-20] MEDS: DOCUSATE SODIUM 100 MG CAP PO SCH (20:43)
[2023-06-20] MEDS ORDERED: ATORVASTATIN 20 MG TAB PO SCH (21:00)
[2023-06-20] MEDS ORDERED: SENNA 8.6 MG TAB PO SCH (21:00)
[2023-06-20] MEDS: ACETAMINOPHEN 500 MG TAB PO SCH (21:02)
[2023-06-20] MEDS: KETOROLAC TROMETHAMINE 10 MG TABLET PO SCH (21:02)
[2023-06-21] MEDS: ceFAZolin 2000MG 2,000 MG/15 ML SYR IV SCH (00:48)
[2023-06-21] MEDS: oxyCODONE HCL IR 5 MG TAB (IMMEDIATE RELEASE) PO PRN ×3 (00:52→10:27)
[2023-06-21] MEDS: ACETAMINOPHEN 500 MG TAB PO SCH (05:53)
--- NOTE | 2023-06-21 06:59 | Orthopedic Progress Note ---
Date of Service June 21, 2023 Assessment & Plan Admission and Anticipated Discharge Date Admission Date: June 20, 2023 Orthopedic Progress Note Postop day 1 status post right total knee replacement. Plan x-rays wound patient was sleeping. She denies any chest pain shortness of breath fever chills nausea vomiting or headache. Vital signs are stable she is afebrile. Neurovascular check femoral sciatic nerve is normal. She can actively dorsi and plantarflex her ankle and toes can do a good quad set and straight leg raise with no lag. Calves are nontender. Assessment doing well discharged home after dressing change and PT OT today. Begin Eliquis 24 hours postop. Discharged on 20 mg prednisone daily for a week. Please note appropriate discharge medications for pain management based on her sensitivities. This will be done by the PA.
[2023-06-21 07:38] LABS: Hematocrit (blood only) 29.7 % (37.0-47.0); Hemoglobin 9.1 g/dl (12.0-16.0); Mean Corpuscular Hemoglobin 26.1 pg (25.0-34.0); Mean Corpuscular Hgb Conc 30.6 g/dL (32.0-36.0); Mean Corpuscular Volume 85.3 fL (80.0-100.0); Platelet Count 178 K/uL (130-400); RDW Standard Deviation 46.1 fL (36.4-46.3); Red Blood Count 3.48 M/uL (4.20-5.40); White Blood Count 7.34 K/ul (4.8-10.8)
[2023-06-21 07:53] LABS: BUN Creatinine Ratio 20.6 (10-20); Calcium 8.9 mg/dl (8.6-10.3); Creatinine Clr Calc Pharmacy 93.7 ml/min; Est GFR (African American) 107.6 ml/min; Est GFR (Non-African American) 92.8 ml/min; Potassium 4.3 mmol/L (3.5-5.1)
[2023-06-21] MEDS ORDERED: dexAMETHasone 10 MG in SYRINGE 0 ML IV SCH (08:00)
[2023-06-21] MEDS: ASCORBIC ACID 500 MG TAB PO SCH (08:28)
[2023-06-21] MEDS: FERROUS GLUCONATE 324 MG TAB PO SCH (08:28)
[2023-06-21] MEDS: KETOROLAC TROMETHAMINE 10 MG TABLET PO SCH (08:28)
[2023-06-21] MEDS: DOCUSATE SODIUM 100 MG CAP PO SCH (08:28)
--- OUTSIDE RECORDS SUMMARY | 2023-06-21 08:59 | External Medical Summary | Continuity of Care Document ---
Author Name Unknown Organization [facility] Address [address] [place] [address] Phone [phone] Care Team Providers Care Weaver Wire Loom Name Role Phone Berhane Franks M.D. Care Team Information Rec eiver [phone] Problems Active Problems Provider Date Irritable bowel syndrome with diarrhea Tevin Schmidt MD Onset: 09/22/2016 Migraine Tevin Schmidt MD Onset: Hyperlipidemia Tevin Schmidt MD Onset: Gastroesophageal reflux disease Tevin pickett MD Onset: 07/03/2013 History of calculus of kidney Tevin Schmidt MD Onset: 04/20/2014 Note: Calcium Oxalate: Follo wed by Dr. Ram History of adenomatous polyp of colon Tevin Schmidt MD Onset: 08/12/2014 Note: Colonoscopy 10/12/08 (Dr Saba Verma) Generalized anxiety disorder Tevin Schmidt MD Onset: 01/28/2018 Herpes simplex Tevin Schmidt MD Onset: Social History Type Date Description Comments Sex Unknown Tobacco Use Start: Unknown Never Smoked Cigarettes Tobacco Use Start: Unknown Never Smoked Cigars Tobacco Use Start: Unknown Never Smoked A Pipe Smoking Status Reviewed: 06/13/23 Never Smoked A Pipe Smokeless Tobacco Never Used Smokeless To bacco ETOH Use Denies alcohol use Recreational Drug Use Denies Drug Use Allergies and adverse reactions Active Allergies Criticality Reaction | Severity Comments Date Codeine Unable to assess criticality NAUSEA/VOMITING 07/03/2013 Morphine Unable to assess criticality LOCAL REACTION TO IV 07/03/2013 Medications Active Medications SIG Qnty Indications Order ing Provider Date Eqquide661le Tablets 1 tablet twice times a day for days 50 days 100tabs Tevin Schmidt MD 03/12/2023 Gyyvxme09gz Tablets 1 by mouth every day 100tabs Tevin Schmidt MD 02/02/2023 Syringe/Luer Lock/3ML/23G X 1-1/2"23G X 1-1/2" 3 ML Misc For use with ketorolac Im as needed max 1 per day, 2 per week 30units Tevin Schmidt MD 08/16/2022 Sertraline CLR25ob Tablets 1.5 tab daily 135tabs Tevin Schmidt MD 06/10/2020 Alprazolam0.5mg Tablets 1/2 to 1 tab by mouth every 8 hours as needed for anxiety 30tabs Tevin Schmidt MD 06/10/2020 Flomax0.4mg Capsules 1 by mouth every day as needed until kidney stone has passed 14caps R31.0 Tevin Schmidt MD 03/19/2020 Olsarkzw86-715-41ss Capsules 1-2 by mouth every 6 hours as needed migraine headache, ongoing therapy 20caps Tevin Schmidt MD 11/07/2018 Ketorolac Vqcczyrqgwzm99ob/ml Solution take one shot intramuscular as needed migraines. 2units G43.009 Tevin Schmidt MD 09/22/2016 Zolpidem Gduixsqa91ux Tablets 1/2-1 tab every night as needed for sleep difficulty 30tabs F41.1 Tevin Schmidt MD 06/02/2013 G47.[address] 1 by mouth tw ice a day before breakfast and supper 60caps Tevin Schmidt MD History Medications Teawlwk796ln Tablets 1 tablet three times a day for days 54tabs Tevin Schmidt MD 03/05/2023 - 03/12/2023 Immunizations CPT Code Status Date Vaccine Lot # [id number] Given 06/05/2023 RSV Arexvy Vacc Pref Recombinant [place]juvant[place] Only [address] Given 04/12/2023 Moderna Covid-1 9 Vaccine 50mcg Booster-EMR Doc Only 36557 Given 04/12/2023 Influenza Vaccine High Do se 0.5ML Age 65 & > 24359 Given 04/24/2022 Pneumococcal Vaccine/Pneu movax 23 [id number] 29327 Given 04/14/2022 [employer] [facility] s-Cov-2 (Covid-19) Vaccine, 0.5mL-EMR Doc Only 01051 Given 04/10/2022 Influenza Vacci ne Quadrivalent Preser/Antibiotic Free Im Use 44442 Given 04/03/2022 Moderna Sars-Co v-2 (Covid-19) Vaccine, BiValent Booster 12y+ 91437 Given 04/12/2021 Shingrix 28057 Given 04/12/2021 Influenza Vaccine High Do se 0.5ML Age 65 & > 41723 Given 01/14/2021 Pneumococcal Conjugate-Pr evnar 13 [id number] 31904 Given 09/30/2020 [employer] [facility] s-Cov-2 (Covid-19) Vaccine, 0.5mL-EMR Doc Only 81096 Given 03/26/2020 Influenza Virus Vaccine, Quad, Preserv Free, 6Mon And Up 73588 Given 03/30/2019 Influenza Virus Vaccine, Quadrivalent, Im Use 38516 Given 04/09/2018 Influenza Virus Vaccine, Quadrivalent, [place] Use 95005 Given 04/16/2017 Influenza Virus Vaccine, Quadrivalent, Im Use 38453 Given 05/24/2016 Influenza Virus Vaccine, Quadrivalent, Im Use [id number] 36319 Given 04/28/2014 Influenza Virus Vaccine, Quadrivalent, Im Use 59438 Given 07/03/2013 Tdap (Tetanus, diphtheria & acel. pertussis) Adacel or Boostrix 12351 Given 04/22/2013 Influenza Vac, Split 3 Yr s And Up 42838 Refused 04/24/2022 Shingrix [id number] Refused 12/11/2018 Shingrix Vital Signs Date Vital Result Comment 06/13/2023 11:14am BP Systolic 122 mmHg BP Diastolic 68 mmHg Heart Rate 72 /min Weight 167.00 lb Weight 75.751 kg Height 70 inches 5'10" BMI (Body Mass Index) 24.0 kg/m2 [place] Body Weight 150 lb 04/26/2023 9:13am BP Systolic 118 mmHg BP Diastolic 78 mmHg Heart Rate 74 /min Weight 167.00 lb Weight 75.751 kg Height 70 inches 5'10" BMI (Body Mass Index) 24.0 kg/m2 [place] Body Weight 150 lb Results Test Acquired Date Facility Test Result H/L Range N ote Lipid 04/26/2023 [facility]. [address] [place], [place] [address] [phone] Cholesterol 173 mg/dL 0-200 1, 2 Triglyceride 85 mg/dL 0-150 3 HDLD 51 mg/dL See Comment 4 Measured LDL 114 mg/dL 0-130 5 Calc VLDL 17.0 mg/dL See Comment 6 Chol/HDL 3.4 RATIO See Comment 7 Non-HDL 122 mg/dL See Comment 8 BMP 04/26/2023 [facility]. [address] [place] [address] [phone] Glucose 91 mg/dL 70-110 BUN 18 mg/dL 6-25 Creatinine 0.7 mg/dL 0.5-1.2 Sodium 143 mEq/L 135-145 Potassium 4.1 mEq/L 3.5-5.0 Chloride 105 mEq/L 95-107 Co-2 28 mEq/L 24-31 Calcium 9.9 mg/dL 8.5-10.6 GFR 89 ML/MIN/1.73SQM >60 CBC W/Diff 04/26/2023 [facility]. [address] [place] [address] [phone] WBC 4.4 10^3/M3 3.1-9.2 RBC 4.32 10^6/M3 3.70-5.50 HGB 11.5 GR/DL 11.5-16.1 HCT 35.8 % 34.5-47.8 MCV 82.9 CUMICR 82.6-95.8 MCH 26.6 PICOGR Low 27.9-32.9 MCHC 32.0 % Low 32.6-35.4 RDW 16.4 % High 11.4-14.6 PLT 261 10^3/M3 140-350 MPV 8.2 CUMICR 7.0-10.6 %Neut 71.5 % 40.0-75.0 %Lymph 14.7 % Low 17.0-45.0 %[place] 7.7 % 1.0-11.0 %Eos 3.2 % 0.0-6.0 %[place] 2.9 % High 0.0-2.0 #Neut 3.2 10^3/M3 1.5-8.0 #Lymph 0.7 10^3/M3 Low 0.8-3.2 #[place] 0.3 10^3/M3 0.0-0.8 #Eos 0.1 10^3/m3 0.0-0.4 #[place] 0.1 10^3/m3 0.0-0.2 Hepatic 04/26/2023 [facility]. [address] [place] [address] [phone] Alk Phos 57 IU/L 43-122 Alt(SGPT) 10 IU/L 10-40 Ast(Sgot) 16 IU/L 3-42 T.Bilirubin 0.4 mg/dL 0.1-1.3 D.Bilirubin 0.1 mg/dL 0.0-0.3 Tot.Protein 7.4 g/dL 5.8-8.0 Albumin 4.4 g/dL 3.0-5.2 1 FASTING 2 CHOLESTEROL Less than 200mg/dl Low risk 201-239 mg/dl Borderline risk Equal to or greater 240mg/dl High risk 3 TRIGLYCERIDES Less than 150mg/dl Normal 150-199mg/dl Borderline 200-499mg/dl High Greater than 500mg/dl Very High 4 HDL <40mg/dl Elevated Risk 41-59mg/dl Risk >=60mg/dl Least Risk 5 LDL <100mg/dl Optimal 100-129mg/dl Near Optimal 130-159mg/dl Borderline High 160-189mg/dl High >=190 Very High 6 VLDL Less than 30mg/dl Normal 7 CHOL/HDL <4.0 Optimal 4.0-5.0 Borderline >6.0 High Risk 8 NON-HDL 30mg/dl higher than LDL Target Procedures Date Code Description Status 04/26/2023 91527 Venipuncture Routine Complet ed 04/26/2023 3078F PVRP Diastolic BP <80 mmHg C ompleted 04/26/2023 3074F PVRP Systolic BP <130 mmHg C ompleted 04/26/2023 1101F PT SCR Future Fall Risk, No Fall Or 1 W/Out Injury Completed 08/07/2022 [id number] Mammogram Completed 04/24/2022 [id number] Bone Mineral Density Test Co mpleted 01/31/2016 [id number] Colonoscopy Completed Medical Devices Description No Information Available Encounters Type Date Location Provider Dx Diagnosis Office Visit 06/13/2023 11:30a BrayanUriel CHARLES Mcgrath Z01.818 Encounter for other preprocedural examination Office Visit 04/26/2023 9:15a CHARLES Ibanez Z00.00 Encntr for general adult medical exam w/o abnormal findings Z13.6 Encounter for screen ing for cardiovascular disorders Z13.220 Encounter for screen ing for lipoid disorders Z13.1 Encounter for screen ing for diabetes mellitus Z13.0 Encntr screen for di s of the bld/bld-form org/immun mechnsm Assessments Date Code Description Provider 06/13/2023 Z01.818 Encounter for other preproce dural examination CHARLES Suarez 04/26/2023 Z00.00 Encounter for ge neral adult medical examination without abnormal findings CHARLES Suarez 04/26/2023 Z13.6 Encounter for sc reening for cardiovascular disorders CHARLES Suarez 04/26/2023 Z13.220 Encounter for screening for lipoid disorders CHARLES Suarez 04/26/2023 Z13.1 Encounter for screening for diabetes mellitus CHARLES Suarez 04/26/2023 Z13.0 Encounter for sc reening for diseases of the blood and blood-forming organs and certain disorders involving the immune mechanism CHARLES Suarez Plan of Treatment Future Appointment(s):* 04/29/2024 8:15 am - CHARLES Suarez at [facility] Functional Status Description No Information Available Mental Status Description No Information Available Referrals Description No Information Available
--- OUTSIDE RECORDS SUMMARY | 2023-06-21 08:59 | External Medical Summary | Continuity of Care Document ---
Author Name Unknown Organization [facility] Address [address] [place] [address] Phone [phone] Care Team Providers Care Physician Scribe Name Role Phone Berhane Franks M.D. Care Team Information Rec eiver [phone] Problems Active Problems Provider Date Irritable bowel [...] SIG Qnty Indications Order ing Provider Date Rrtkblp770th Tablets 1 tablet twice times a day for days 50 days 100tabs Tevin Schmidt MD 03/12/2023 Airhzoa70uj Tablets 1 by mouth every day 100tabs Tevin Schmidt MD 02/02/2023 Syringe/Luer Lock/3ML/23G X 1-1/2"23G X 1-1/2" 3 ML Misc For use with ketorolac Im as needed max 1 per day, 2 per week 30units Tevin Schmidt MD 08/16/2022 Sertraline JHB49qn Tablets 1.5 tab daily 135tabs Tevin Schmidt MD 06/10/2020 Alprazolam0.5mg Tablets 1/2 to 1 tab by mouth every 8 hours as needed for anxiety 30tabs Tevin Schmidt MD 06/10/2020 Flomax0.4mg Capsules 1 by mouth every day as needed until kidney stone has passed 14caps R31.0 Tevin Schmidt MD 03/19/2020 [id number] Capsules 1-2 by mouth every 6 hours as needed migraine headache, ongoing therapy 20caps Tevin Schmidt MD 11/07/2018 Ketorolac Iiyolimgrxuj56ri/ml Solution take one shot intramuscular as needed migraines. 2units G43.009 Tevin Schmidt MD 09/22/2016 Zolpidem Tqqejtuj93by Tablets 1/2-1 tab every night as needed for sleep difficulty 30tabs F41.1 Tevin Schmidt MD 06/02/2013 G47.[address] 1 by mouth tw ice a day before breakfast and supper 60caps Tevin Schmidt MD History Medications Jmntsxp836oi Tablets 1 tablet three times a day for days 54tabs Tevin Schmidt MD 03/05/2023 - 03/12/2023 Immunizations CPT Code Status Date Vaccine Lot # [id number] Given 06/05/2023 RSV Arexvy Vacc Pref Recombinant [place] Only [address] Given 04/12/2023 Moderna Covid-1 9 Vaccine 50mcg Booster-EMR Doc Only 71067 Given 04/12/2023 Influenza Vaccine High Do se 0.5ML Age 65 & > 08116 Given 04/24/2022 Pneumococcal Vaccine/Pneu movax 23 [id number] 15179 Given 04/14/2022 [employer]J/[employer] [facility] s-Cov-2 (Covid-19) Vaccine, 0.5mL-EMR Doc Only 05254 Given 04/10/2022 Influenza Vacci ne Quadrivalent Preser/[place]ib[place] Use [address]162 Given 04/03/2022 Moderna Sars-Co v-2 (Covid-19) Vaccine, BiValent Booster 12y+ 16090 Given 04/12/2021 Shingrix 98963 Given 04/12/2021 Influenza Vaccine High Do se 0.5ML Age 65 & > 76392 Given 01/14/2021 Pneumococcal Conjugate-Pr evnar 13 [id number] 81318 Given 09/30/2020 [employer] [facility] s-Cov-2 (Covid-19) Vaccine, 0.5mL-EMR Doc Only 45754 Given 03/26/2020 Influenza Virus Vaccine, Quad, Preserv Free, 6Mon And Up 49723 Given 03/30/2019 Influenza Virus Vaccine, Quadrivalent, Im Use 69473 Given 04/09/2018 Influenza Virus Vaccine, Quadrivalent, Im Use 79208 Given 04/16/2017 Influenza Virus Vaccine, Quadrivalent, Im Use 12294 Given 05/24/2016 Influenza Virus Vaccine, Quadrivalent[id number] [address] Given 04/28/2014 Influenza Virus Vaccine, Quadrivalent, Im Use 92909 Given 07/03/2013 Tdap (Tetanus, diphtheria & acel. pertussis) Adacel or Boostrix 41043 Given 04/22/2013 Influenza Vac, Split 3 Yr s And Up 09964 Refused 04/24/2022 Shingrix [id number] Refused 12/11/2018 Shingrix Vital Signs Date Vital Result Comment 06/13/2023 11:14am BP Systolic 122 mmHg BP Diastolic 68 mmHg Heart Rate 72 /min Weight 167.00 lb Weight 75.751 kg Height 70 inches 5'10" BMI (Body Mass Index) 24.0 kg/m2 [place] Body Weight 150 lb 04/26/2023 9:13am BP Systolic 118 mmHg BP Diastolic 78 mmHg Heart Rate 74 /min Weight 167.00 lb Weight 75.751 kg Height 70 inches 5'10" BMI (Body Mass Index) 24.0 kg/m2 [place] Body Weight 150 lb Results Test Acquired Date Facility Test Result H/L Range N ote Lipid 04/26/2023 [facility]. [address] [place], [place] [address] [phone] Cholesterol 173 mg/dL 0-200 1, 2 Triglyceride 85 mg/dL 0-150 3 HDLD 51 mg/dL See Comment 4 Measured LDL 114 mg/dL 0-130 5 Calc VLDL 17.0 mg/dL See Comment 6 Chol/HDL 3.4 RATIO See Comment 7 Non-HDL 122 mg/dL See Comment 8 BMP 04/26/2023 [facility]. [address] [place] [address] [phone] Glucose 91 mg/dL 70-110 BUN 18 mg/dL 6-25 Creatinine 0.7 mg/dL 0.5-1.2 Sodium 143 mEq/L 135-145 Potassium 4.1 mEq/L 3.5-5.0 Chloride 105 mEq/L 95-107 Co-2 28 mEq/L 24-31 Calcium 9.9 mg/dL 8.5-10.6 GFR 89 ML/MIN/1.73SQM >60 CBC W/Diff 04/26/2023 [facility]. [address] [place] [address] [phone] WBC 4.4 10^3/M3 3.1-9.2 RBC 4.32 10^6/M3 3.70-5.50 HGB 11.5 GR/DL 11.5-16.1 HCT 35.8 % 34.5-47.8 MCV 82.9 CUMICR 82.6-95.8 MCH 26.6 PICOGR Low 27.9-32.9 MCHC 32.0 % Low 32.6-35.4 RDW 16.4 % High 11.4-14.6 PLT 261 10^3/M3 140-350 MPV 8.2 CUMICR 7.0-10.6 %Neut 71.5 % 40.0-75.0 %Lymph 14.7 % Low 17.0-45.0 %[place] 7.7 % 1.0-11.0 %Eos 3.2 % 0.0-6.0 %[place] 2.9 % High 0.0-2.0 #Neut 3.2 10^3/M3 1.5-8.0 #Lymph 0.7 10^3/M3 Low 0.8-3.2 #[place] 0.3 10^3/M3 0.0-0.8 #Eos 0.1 10^3/m3 0.0-0.4 #[place] 0.1 10^3/m3 0.0-0.2 Hepatic 04/26/2023 [facility]. [address] [place] [address] [phone] Alk Phos 57 IU/L 43-122 Alt(SGPT) 10 [...] Target Procedures Date Code Description Status 04/26/2023 30573 Venipuncture Routine Complet ed 04/26/2023 3078F PVRP Diastolic BP <80 mmHg C ompleted 04/26/2023 3074F PVRP Systolic BP <130 mmHg C ompleted 04/26/2023 1101F PT SCR Future Fall Risk, No Fall Or 1 W/Out Injury Completed 08/07/2022 [id number] Mammogram Completed 04/24/2022 [id number] Bone Mineral Density Test Co mpleted 01/31/2016 [id number] Colonoscopy Completed Medical Devices Description No Information Available Encounters Type Date Location Provider Dx Diagnosis Office Visit 06/13/2023 11:30a BraaynUriel CHARLES Mcgrath Z01.818 Encounter for other preprocedural [...] 04/29/2024 8:15 am - CHARLES Suarez at [facility] Functional Status Description No Information Available Mental Status Description No Information Available Referrals Description No Information Available
--- OUTSIDE RECORDS SUMMARY | 2023-06-21 08:59 | External Medical Summary | Continuity of Care Document ---
Author Name Unknown Organization [facility] Address [address] [place] [address] Phone [phone] Care Team Providers Care Piano Builder Name Role Phone Berhane Franks M.D. Care Team Information Rec eiver [phone] Problems Active Problems Provider Date Irritable bowel [...] SIG Qnty Indications Order ing Provider Date Httijif859vx Tablets 1 tablet twice times a day for days 50 days 100tabs Tevin Schmidt MD 03/12/2023 Pbjvuud01vn Tablets 1 by mouth every day 100tabs Tevin Schmidt MD 02/02/2023 Syringe/Luer Lock/3ML/23G X 1-1/2"23G X 1-1/2" 3 ML Misc For use with ketorolac Im as needed max 1 per day, 2 per week 30units Tevin Schmidt MD 08/16/2022 Sertraline QCM31pt Tablets 1.5 tab daily 135tabs Tevin Schmidt MD 06/10/2020 Alprazolam0.5mg Tablets 1/2 to 1 tab by mouth every 8 hours as needed for anxiety 30tabs Tevin Schmidt MD 06/10/2020 Flomax0.4mg Capsules 1 by mouth every day as needed until kidney stone has passed 14caps R31.0 Tevin Schmidt MD 03/19/2020 [id number] Capsules 1-2 by mouth every 6 hours as needed migraine headache, ongoing therapy 20caps Tevin Schmidt MD 11/07/2018 Ketorolac Wvvweflzkvqp60vx/ml Solution take one shot intramuscular as needed migraines. 2units G43.009 Tevin Schmidt MD 09/22/2016 Zolpidem Sbqdxqgl32lh Tablets 1/2-1 tab every night as needed for sleep difficulty 30tabs F41.1 Tevin Schmidt MD 06/02/2013 G47.[address] 1 by mouth tw ice a day before breakfast and supper 60caps Tevin Schmidt MD History Medications Vyutyuo792dh Tablets 1 tablet three times a day for days 54tabs Tevin Schmidt MD 03/05/2023 - 03/12/2023 Immunizations CPT Code Status Date Vaccine Lot # [id number] Given 06/05/2023 RSV Arexvy Vacc Pref Recombinant Adjuvanted EMR Only 79366 Given 04/12/2023 Moderna Covid-1 9 Vaccine 50mcg Booster-EMR Doc Only 25897 Given 04/12/2023 Influenza Vaccine High Do se 0.5ML Age 65 & > 54656 Given 04/24/2022 Pneumococcal Vaccine/Pneu movax 23 [id number] 84254 Given 04/14/2022 [employer] [facility] s-Cov-2 (Covid-19) Vaccine, 0.5mL-EMR Doc Only 91306 Given 04/10/2022 Influenza Vacci ne Quadrivalent Preser/[place] Use [address] Given 04/03/2022 Moderna Sars-Co v-2 (Covid-19) Vaccine, BiValent Booster 12y+ 74509 Given 04/12/2021 Shingrix 46755 Given 04/12/2021 Influenza Vaccine High Do se 0.5ML Age 65 & > 56655 Given 01/14/2021 Pneumococcal Conjugate-Pr evnar 13 [id number] 82141 Given 09/30/2020 [facility] [facility] s-Cov-2 (Covid-19) Vaccine, 0.5mL-EMR Doc Only 59648 Given 03/26/2020 Influenza Virus Vaccine, Quad, Preserv Free, 6Mon And Up 61191 Given 03/30/2019 Influenza Virus Vaccine, Quadrivalent, [place] Use 25242 Given 04/09/2018 Influenza Virus Vaccine, Quadrivalent, Im Use 59485 Given 04/16/2017 Influenza Virus Vaccine, Quadrivalent, Im Use 21143 Given 05/24/2016 Influenza Virus Vaccine, Quadrivalent, Im Use [id number] 87227 Given 04/28/2014 Influenza Virus Vaccine, Quadrivalent, Im Use 59430 Given 07/03/2013 Tdap (Tetanus, diphtheria & acel. pertussis) Adacel or Boostrix 95651 Given 04/22/2013 Influenza Vac, Split 3 Yr s And Up 04101 Refused 04/24/2022 Shingrix [id number] Refused 12/11/2018 Shingrix Vital Signs Date Vital Result Comment 06/13/2023 11:14am BP Systolic 122 mmHg BP Diastolic 68 mmHg Heart Rate 72 /min Weight 167.00 lb Weight 75.751 kg Height 70 inches 5'10" BMI (Body Mass Index) 24.0 kg/m2 [place] Body Weight 150 lb 04/26/2023 9:13am BP Systolic 118 mmHg BP Diastolic 78 mmHg Heart Rate 74 /min Weight 167.00 lb Weight 75.751 kg Height 70 inches 5'10" BMI (Body Mass Index) 24.0 kg/m2 [place] Body Weight 150 lb Results Test Acquired Date Facility Test Result H/L Range N ote Lipid 04/26/2023 [facility]. [address] [place], [place] [id number] [phone] Cholesterol 173 mg/dL 0-200 1, 2 Triglyceride 85 mg/dL 0-150 3 HDLD 51 mg/dL See Comment 4 Measured LDL 114 mg/dL 0-130 5 Calc VLDL 17.0 mg/dL See Comment 6 Chol/HDL 3.4 RATIO See Comment 7 Non-HDL 122 mg/dL See Comment 8 BMP 04/26/2023 [facility]. [address] [place] [address] [phone] Glucose 91 mg/dL 70-110 BUN 18 mg/dL 6-25 Creatinine 0.7 mg/dL 0.5-1.2 Sodium 143 mEq/L 135-145 Potassium 4.1 mEq/L 3.5-5.0 Chloride 105 mEq/L 95-107 Co-2 28 mEq/L 24-31 Calcium 9.9 mg/dL 8.5-10.6 GFR 89 ML/MIN/1.73SQM >60 CBC W/Diff 04/26/2023 [facility]. [address] [place] [address] [phone] WBC 4.4 10^3/M3 3.1-9.2 RBC 4.32 10^6/M3 3.70-5.50 HGB 11.5 GR/DL 11.5-16.1 HCT 35.8 % 34.5-47.8 MCV 82.9 CUMICR 82.6-95.8 MCH 26.6 PICOGR Low 27.9-32.9 MCHC 32.0 % Low 32.6-35.4 RDW 16.4 % High 11.4-14.6 PLT 261 10^3/M3 140-350 MPV 8.2 CUMICR 7.0-10.6 %Neut 71.5 % 40.0-75.0 %Lymph 14.7 % Low 17.0-45.0 %[place] 7.7 % 1.0-11.0 %Eos 3.2 % 0.0-6.0 %[place] 2.9 % High 0.0-2.0 #Neut 3.2 10^3/M3 1.5-8.0 #Lymph 0.7 10^3/M3 Low 0.8-3.2 #[place] 0.3 10^3/M3 0.0-0.8 #Eos 0.1 10^3/m3 0.0-0.4 #[place] 0.1 10^3/m3 0.0-0.2 Hepatic 04/26/2023 [facility]. [address] [place] [address] [phone] Alk Phos 57 IU/L 43-122 Alt(SGPT) 10 [...] Target Procedures Date Code Description Status 04/26/2023 00771 Venipuncture Routine Complet ed 04/26/2023 3078F PVRP Diastolic BP <80 mmHg C ompleted 04/26/2023 3074F PVRP Systolic BP <130 mmHg C ompleted 04/26/2023 1101F PT SCR Future Fall Risk, No Fall Or 1 W/Out Injury Completed 08/07/2022 [id number] Mammogram Completed 04/24/2022 [id number] Bone Mineral Density Test Co mpleted 01/31/2016 [id number] Colonoscopy Completed Medical Devices Description No Information [...] 04/29/2024 8:15 am - CHARLES Suarez at [facility] Functional Status Description No Information Available Mental Status Description No Information Available Referrals Description No Information Available
--- OUTSIDE RECORDS SUMMARY | 2023-06-21 08:59 | External Medical Summary | Continuity of Care Document ---
Author Name Unknown Organization [facility] [id number] Address [address] [place] [phone] Care Team Providers Care Magazine Writer Name Role Phone Tevin Schmidt Primary Care Physician [phone] [facility]counter [id number] Date(s): 06/11/23 - 06/11/23 [facility] [address] [id number] [facility] [address] [place] [id number] Encounter Diagnosis Preop testing(Discharge Diagnosis) - 06/11/23 S/P total knee arthroplasty(Discharge Diagnosis) - 06/13/23 Discharge Disposition: Home or Self Care Attending Physician: COLLIN Goldman, Get Nagel Referring Physician: MD Vinayak, Dominick Jose Allergies, Adverse Reactions, Alerts Substance Reaction Severity Status codeine n/a Active morphine Active Medications amoxicillin 500 mg oral capsule Start: 08/28/22 8:53:00 EST, 4 cap, PO, As indicated, Disp# 12 cap, Refills: 3, one hour before dental and other procedures as directed, Pharmacy: [id number] Start Date: 08/28/22 Status: Ordered Eliquis 2.5 mg oral tablet Start: 06/11/23 13:20:00 EST, 1 tab, PO, bid, Disp# 80 tab, Pharmacy: [id number] Start Date: 06/11/23 Status: Ordered Keflex 500 mg oral capsule Start: 06/11/23 13:21:00 EST, 1 cap, PO, tid, Disp# 12 cap, Stop: 06/25/23 14:00:00 EST, Pharmacy: [id number] Start Date: 06/11/23 Stop Date: 06/25/23 Status: Ordered ketorolac 30 mg/mL injectable solution Start: 02/17/19 13:42:00 EDT, 15 mg =, IM, ONCE, PRN: as needed for pain Start Date: 02/17/19 Status: Ordered Lipitor Start: 11/22/15 9:55:00 Start Date: 11/22/15 Status: Ordered LORazepam 1 mg oral tablet TAKE 1/2 TO 1 TABLET BY MOUTH EVERY 8 HOURS NEEDED FOR ANXIETY Start Date: 02/17/19 Status: Ordered omeprazole Start: 11/22/15 9:56:00 Start Date: 11/22/15 Status: Ordered Percocet 5 mg-325 mg oral tablet Start: 06/11/23 17:22:00 EST, 2 tab, PO, q6h, Disp# 20 tab, Refills: 0, Note to Pharmacy: initial script; post op joint replacement, PRN: as needed for pain, Stop: 06/24/23 17:00:00 EST, Pharmacy: [id number] Start Date: 06/11/23 Stop Date: 06/24/23 Status: Ordered zolpidem 10 mg oral tablet TAKE 1/2 TO 1 TABLET BY MOUTH AT BEDTIME IF NEEDED FOR SLEEP Start Date: 02/17/19 Status: Ordered Mental Status 06/11/23 Barriers to Learning one year None evide nt Mandatory Health Literacy Documentation Yes Health Literacy Communication Barriers N ever Primary Language Pashto Problem List Condition Confirmation Course Effective Dates Status H ealth Status Informant S/P medial meniscectomy of left knee Confirmed Active Status post total left knee replacement Confirmed Active Pre-op exam Confirmed Active Primary osteoarthritis of right knee Confirmed Active Torn medial meniscus Confirmed Active Diagnosis Diagnosis Type Effective Dates Health Status Clinical Service Informant Preop testing Discharge Diagnosis 06/11/23 Non-Specified S/P total knee arthroplasty Discharge Diagnosis 06/13/23 Non-Specified Procedures Procedure Date Related Diagnosis Body Site Status Ear Completed Hysterectomy Completed Vital Signs Most recent to oldest [Reference Range]: 1 Temperature [36.5-37.9 DegC] 36.2 DegC *LOW* (06/11/23 12:28 PM) Respiratory Rate 20 br/min (06/11/23 12:28 PM) Blood Pressure 110/74mmHg (06/11/23 12:28 PM) Cuff Pulse Pressure 36 mmHg (06/11/23 12:28 PM) Social History Social History Type Response Smoking Status Never smoked cigaret suman Sex Female Cardiology * Contributor_system, MUSE01: VERIFY, PERFORM Event Display: EKG Authored Date: [id number] Please click on link to see image. Pre-OP H & P * COLLIN Goldman Cory D: PERFORM, MODIFY Event Display: Pre-OP H & P Authored Date: [id number] PRE-OPERATIVE HISTORY AND PHYSICAL Name: RITESH ROBERTSON Patient Number: [id number] : 1955 Date of Service: 06/11/2023 PRE-OP Diagnosis: Right knee osteoarthritis Planned Procedure: Right knee DJD Chief Complaint: Right knee pain History of Present Illness (including history relevant to procedure): This 67-year-old female presents today for her preoperative history and physical. She is scheduled to undergo a right knee total knee arthroplasty on 06/20/2023. She has had a longstanding history of right knee pain. It has been ongoing for over a year. She previously had a left total knee arthroplasty done in June of last year. She has done very well with it. She elects to proceed with the same on the right. She denies any numbness or tingling. She has had buckling of the knee. No catching or locking. Pain is worse medially. Worse with weightbearing or walking. The pain is affecting her ADLs. She has tried conservative care measures, including injection therapy and oral medication, without improvement. Preoperativeimaging has been obtained. Review Of Systems: A total of 10 systems were reviewed and are significant only for below stated conditions. Social history: Patient is retired. . No tobacco use, occasional EtOH use. Family history: Noncontributory. Past Medical History: Problems: Status post total left knee replacement Primary osteoarthritis of right knee S/P medial meniscectomy of left knee GERD Kidney stones Anxiety Migraine headaches Procedure History Procedure Procedure Date Comments Hysterectomy Ear Laser eye surgery C-sections x 2 left knee TKA Back surgery 06/2022 Allergies and Sensitivities: codeine(nausea/vomiting) morphine (swelling) Current Home Meds: (Last Updated 06/11 13:22) LORazepam (LORazepam 1 mg oral tablet) TAKE 1/2 TO 1 TABLET BY MOUTH EVERY 8 HOURS NEEDED FOR ANXIETY amoxicillin (amoxicillin 500 mg oral capsule) 2,000 mg PO As indicated one hour before dental and other procedures as directed apixaban (Eliquis 2.5 mg oral tablet) 2.5 mg PO bid atorvastatin (Lipitor) cephalexin (Keflex 500 mg oral capsule) 500 mg PO tid ketorolac (ketorolac 30 mg/mL injectable solution) 15 mg IM ONCE PRN: as needed for pain omeprazole zolpidem (zolpidem 10 mg oral tablet) TAKE 1/2 TO 1 TABLET BY MOUTH AT BEDTIME IF NEEDED FOR SLEEP Vitals: Last Updated 06/11/23 12:28 Weights: No Weight Data Available Date Temp Pulse BP RR SpO2 FIO2 Date Wt(kg) Wt(lb) 06/11 12:28 36.2 110/74 20 98 24 Hr Tmax: 36.2 at 06/11 12:28 Initial Wt: No Data Available Physical Exam: (relevant to the procedure, including heart and lung evaluation) General: Well-developed, well-nourished, middle-aged female, in no acute distress. Sitting in a chair. Alert and oriented. HEENT: Normocephalic, atraumatic. Eyes PERRLA, EOMI. Nares patent bilaterally without nasal drainage. Oropharynx with moist oral mucosa. Denture plates are noted. Neck: No JVD. Cardiac: RRR. No MGR. Peripheral pulses are 2+. Lungs: Clear to auscultation bilaterally. No crackles, rhonchi, or wheezing. Good air movement. Abdomen: Bowel sounds present x 4. Soft nontender. No organomegaly. No masses. Extremities: He has no intra-articular effusion. No warmth. She lacks 5 to 8 degrees of terminal extension. Flexion to greater than 110 degrees. Strength is 5/5 with good quad tone. Stable collateralligaments. There is focal discomfort with palpation over the medial and lateral joint lines, with medial being worst. No palpable defect in the patellar tendon or quadriceps tendon. Mild crepitus is palpable with motion. Ambulating today with a slightly antalgic gait. Neuro: Gross sensation is intact across both lower extremities by soft touch. Skin: Warm and dry with good turgor. No rashes. No ecchymosis or erythema. No intra-articular effusion. Studies of radiology results (relevant to the procedure): Radiographic imaging previously obtained of the right knee shows end-stage DJD. ASSESSMENT: Right knee DJD Plan: Approximate 25 minutes was spent with the patient reviewing operative procedure, postoperative recovery, physical therapy requirements, and medication use. Postoperative prescriptions for Percocet, Eliquis, and Keflex were sent to her pharmacy. She would like to proceed on an outpatient basiswith her total knee arthroplasty. Arrangements will be made for home health. She will see me 2 dayspostop for dressing change. PDMP was checked and there are no concerning findings. She is aware of the COVID-19 risks associated with surgery. She is currently asymptomatic of any COVID-19 symptoms. Informed written consent was obtained to proceed with total knee arthroplasty of the right knee. Cam has access to a walker and crutches. She will have her preop lab work, EKG, and chest x-raydone today. She has an appointment to see her PCP next week for medical clearance. This dictation has been completed using [employer] text voice recognition software. Grammatical errors, omissions, insertions, and misspellings may be present due to the limitations of the software. Electronic Signature on File Electronically Reviewed/Signed by: Get Goldman PA-C Author Signature Dt/Tm:06/11/2023 03:45 PM Division of Sports Medicine Electronically Reviewed/Signed by: Dominick Licea MD Cosigner Signature Dt/Tm: 06/11/2023 04:40 PM Print Line Tailer for Clinical Affairs, [facility] Jose [facility] Professor in Orthopaedics Wound/Ostomy Clinical Nurse Specialist, [facility] Sports Medicine CDS Patient Care team information Care Team Personnel Name: MD Schmidt William J Position: Referring DIRECT Member Role: Primary Care Provider Address: Address: [address] [place] [address] Care Team Related Persons Name: JAZMINE MATOS Address: home [address] [place] [phone] Name: JAZMINE MATOS Address: home [address] [place] [place] [phone] Name: JAZMINE ROBERTSON Address: home [address] [place] [phone]
[2023-06-21] MEDS ORDERED: MULTIVITAMIN TAB PO SCH (09:00)
[2023-06-21] MEDS ORDERED: APIXABAN 2.5 MG TAB PO SCH (09:00)
[2023-06-21] MEDS ORDERED: SERTRALINE HCL 50 MG TABLET PO SCH (09:00)
--- NOTE | 2023-06-21 09:28 | Orthopedic Progress Note ---
Date of Service June 21, 2023 Assessment & Plan (1) Status post right knee replacement: Plan: The patient was educated regarding today's findings. Conservative care measures were discussed. Her dressings were changed by me. New pressure dressing was applied. Gokul stocking was also applied. She will leave this in place through the weekend. It can be changed by home health nursing on Sunday if needed. Importance of using the knee immobilizer today and tomorrow was discussed. Discontinue it entirely on Sunday morning. Prescriptions for Ashfield 5 mg, prednisone 20 mg x 7 days, Zofran 4 mg, and Eliquis 2.5 mg twice daily x 30 days, were sent to her pharmacy. Follow-up with me in the office in 2 weeks as scheduled for staple removal. Written discharge instructions were provided. Admission and Anticipated Discharge Date Admission Date: June 20, 2023 Subjective This 67-year-old female seen today in her room. She is 1 day status post right total knee arthroplasty. Her is present. She states she did very well overnight. She slept very well. She feels ready for discharge to home. She is just waiting for physical therapy. She did finish her breakfast and had no issues with nausea or vomiting. She denies any chest pain, shortness of breath, nausea, vomiting, abdominal pain, or diarrhea. She actually has minimal knee pain at this point as well. She is requesting [place]field for pain control as the oxycodone last evening was a bit too strong for her. No other complaints. Review of Systems Review of Systems: Unchanged from yesterday. Physical Exam Physical Exam: General: Well-developed, well-nourished, middle-aged female, in no acute distress. Sitting on the bed. Alert and oriented. Conversive. Skin: Warm and dry with good turgor. No rashes. Postsurgical dressings are in place on the right knee. Upon removal, she has scant dried blood on the most inner dressings. Expected postoperative edema. No ecchymosis or erythema. No active bleeding. [place] are intact. Wound edges are well-approximated. Musculoskeletal: The patient has intact motor function to her toes, ankle, and knee. She is able to set her quad and perform a straight leg raise. Full terminal extension. Flexion to greater than 45 degrees. Neurologic: Gross sensation is intact across the right leg by soft touch. Peripheral pulses are 2+. Results & Data Vital Signs (Past 12 Hours) Vital Signs Temp Pulse Resp BP Pulse Ox O2 Del Method 06/21/23 08:05 36.3 C L 66 18 93/59 L 98 Room Air 06/21/23 02:27 36.3 C L 70 18 99/64 L 95 Room Air 06/20/23 23:06 36.7 C 76 18 99/62 L 97 Room Air Laboratory Results CBC obtained this morning shows a white count of 7.3. H&H of 9.1 and 29.7. Platelets 178,000. PRP obtained this morning shows normal electrolytes. Normal BUN and creatinine. Glucose 101.
== END 2023-06-21 10:49 | disposition home health service (06) ==
LOC: 3W 05:44 → ASU 05:44